=== PATIENT | female | born 1960 | race Caucasian/White ===

== ENCOUNTER → 2018-11-09 | Day surgery (SDC) | payer OTHER ==
[~2018-11-09] MED LIST: ACET1TAB33 PO; ACYC200C PO; AMLO10TA8 PO; AMLO5TAB10 PO; ASPI325T11 PO; CARV3.1210 PO; GABA-585 PO; HYDROmorphone 2 MG/ML VIAL IV PRN; IV RINGERS,LACTATED 1000ML 1,000 ML IV SCH; LIALDA1.2 GM PO; LIDOCAINE 1% PF 2 ML VIAL. ID PRN; LIDOCAINE 1% PF 2 ML VIAL. ONE; MORPHINE SULFATE 2 MG/ML VIAL. IV PRN; NAPR220C4 PO; OLME40TA12 PO; ONDANSETRON PF 4 MG/2 ML VIAL. IV PRN; PRED-220 PO; PROCHLORPERAZINE 10 MG/2 ML VIAL. IV PRN; PROPOFOL 20 ML IV ONE; RABE20TA18 PO; SPIR25TA PO; THIA100T22 PO; fentaNYL PF VIAL 100 MCG/2 ML VIAL IV PRN
[2018-11-09 08:00] VITALS: BP 176/89
== END | disposition home or self-care (01) ==
LOC: SURG 06:13
PROVIDERS: ATTEND Internal Medicine Gastroenterology
DX: K22.2 Esophageal obstruction (principal); K21.9 Gastro-esophageal reflux disease without esophagitis; I10 Essential (primary) hypertension; D50.9 Iron deficiency anemia, unspecified; Z80.41 Family history of malignant neoplasm of ovary; Z79.899 Other long term (current) drug therapy; Z90.49 Acquired absence of other specified parts of digestive tract; Z90.710 Acquired absence of both cervix and uterus
CPT/HCPCS: 43235; 43450; J2704

== ENCOUNTER → 2018-11-15 | Outpatient (CLI) | payer OTHER ==
[2018-11-09 08:00] VITALS: BP 176/89
[~2018-11-15] MED LIST changes: +BARIUM SULFATE 340 GM SUSPENSION. PO ONE; +BARIUM SULFATE 60% 355 ML SUSP PO ONE; -HYDROmorphone 2 MG/ML VIAL IV PRN; -IV RINGERS,LACTATED 1000ML 1,000 ML IV SCH; -LIDOCAINE 1% PF 2 ML VIAL. ID PRN; -LIDOCAINE 1% PF 2 ML VIAL. ONE; -MORPHINE SULFATE 2 MG/ML VIAL. IV PRN; -ONDANSETRON PF 4 MG/2 ML VIAL. IV PRN; -PROCHLORPERAZINE 10 MG/2 ML VIAL. IV PRN; -PROPOFOL 20 ML IV ONE; +SIMETHICONE/SOD BICARB/CITRIC ACID PACKET. PO ONE; -fentaNYL PF VIAL 100 MCG/2 ML VIAL IV PRN
--- NOTE | 2018-11-15 14:20 | RAD ---
Esophagram, 11/15/2018: History: Esophageal stricture, recent dilatation. Food sticking The study was performed thin and thickened liquid barium. 3.9 minutes of fluoroscopy time is utilized. 10 static and dynamic fluoroscopic sequences were recorded. The swallowing mechanism is intact. There is a mildly prominent cricopharyngeal impression in the cervical esophagus. There is no associated obstruction to flow of the contrast through the cervical region. The esophageal peristalsis is decreased with scattered tertiary contractions. These results in moderate stasis of barium in the thoracic esophagus in the recumbent position. There is a small hiatal hernia. There is mild smooth narrowing of the distal esophagus just superior to the level of the hiatal hernia. The esophagus opens up to a diameter of 12-13 mm at this level. No gastroesophageal reflux was demonstrated. IMPRESSION: 1. Mild smooth narrowing of the distal esophagus just superior to the level of a small hiatal hernia. 2. Esophageal tertiary contractions with stasis of some of the ingested materials in the thoracic esophagus in the recumbent position. 3. Mildly prominent cricopharyngeal and breast in the cervical esophagus.
== END | disposition home or self-care (01) ==
LOC: RAD 14:37
PROVIDERS: ATTEND Internal Medicine Gastroenterology
DX: R13.19 Other dysphagia (principal); K44.9 Diaphragmatic hernia without obstruction or gangrene
CPT/HCPCS: 74220

== ENCOUNTER → 2018-11-23 | Outpatient (CLI) | payer OTHER ==
[2018-11-09 08:00] VITALS: BP 176/89
[~2018-11-23] MED LIST changes: -ACET1TAB33 PO; -ACYC200C PO; -AMLO10TA8 PO; -AMLO5TAB10 PO; +AMLO5TAB7 PO; -ASPI325T11 PO; -BARIUM SULFATE 340 GM SUSPENSION. PO ONE; -BARIUM SULFATE 60% 355 ML SUSP PO ONE; -CARV3.1210 PO; -GABA-585 PO; -PRED-220 PO; -RABE20TA18 PO; -SIMETHICONE/SOD BICARB/CITRIC ACID PACKET. PO ONE; -SPIR25TA PO; -THIA100T22 PO
--- NOTE | 2018-11-23 12:10 | RAD ---
Radionuclide gastric emptying study, 11/23/2018: HISTORY: Hiatal hernia, epigastric fullness after eating The study was performed utilizing a solid test meal radiolabeled with 2.0 mCi of technetium 99m sulfur colloid. The following gastric retention values were obtained: 1 hour-26 percent 2 hours-6 percent 3 hours-1 percent. A gastric T1/2 of 35 minutes was also calculated. IMPRESSION: Normal gastric emptying time. Electronically signed by: Cruz Graham MD (11/23/2018 12:05 PM) [facility]
== END | disposition home or self-care (01) ==
LOC: NM 08:14
PROVIDERS: ATTEND Internal Medicine Gastroenterology
DX: R13.10 Dysphagia, unspecified (principal); R10.84 Generalized abdominal pain
CPT/HCPCS: 78264; A9541

== ENCOUNTER 2019-01-12 10:37 | Inpatient (IN) | payer OTHER ==
[~2019-01-12] VITALS: Ht 160 cm; Wt 119.9 kg
[~2019-01-12 10:37] MED LIST changes: +AMLO5TAB10 PO; -AMLO5TAB7 PO
--- NOTE | 2019-01-12 11:29 | PHYS DOC ---
Adult General Chief Complaint Chief Complaint: CHEST PAIN HPI HPI Patient is a 58-year-old female who presents to the emergency department for evaluation. She states that this morning, when brushing her teeth around 7:30 in the morning, she noticed that water was dribbling out of the left side of her mouth and she has felt some numbness on the left side of her face. She didn' t notice any other muscle weakness but did report some paresthesias in her left arm as well. She denies any headache, vision changes, speech difficulty, headache, or other focal weakness. She has also been having some chest discomfort, nonradiating, described as an achiness, on and off this morning. There are no alleviating or exacerbating factors to her symptoms otherwise. Review of Systems Review of Systems Constitutional: Denies fever or chills [] Eyes: Denies change in visual acuity, redness, or eye pain [] HENT: Denies nasal congestion or sore throat [] Respiratory: Denies cough or shortness of breath [] Cardiovascular: No additional information not addressed in HPI [] GI: Denies abdominal pain, nausea, vomiting, bloody stools or diarrhea [] : Denies dysuria or hematuria [] Musculoskeletal: Denies back pain or joint pain [] Integument: Denies rash or skin lesions [] Neurologic: Denies headache, or other neurological deficits other than as discussed in the history of present illness.[] Endocrine: Denies polyuria or polydipsia [] All other systems were reviewed and found to be within normal limits, except as documented in this note. Current Medications Current Medications Current Medications Medications (Trade) Dose Ordered Sig/Attila Start Time Stop Time Status Last Admin Dose Admin Aspirin (Children'S Aspirin) 324 mg 1X ONCE 01/12/19 11:30 01/12/19 11:31 DC 01/12/19 11:59 324 MG Info (CONTRAST GIVEN -- Rx MONITORING) 1 each PRN DAILY PRN 01/12/19 12:00 01/14/19 11:59 Iohexol (Omnipaque 300 Mg/ml) 75 ml 1X ONCE 01/12/19 11:45 01/12/19 11:46 DC Iohexol (Omnipaque 350 Mg/ml) 75 ml 1X ONCE 01/12/19 11:45 01/12/19 11:49 DC 01/12/19 11:51 75 ML Allergies Allergies Allergies Coded Allergies Type Severity Reaction Last Updated Verified No Known Drug Allergies 11/07/18 No Physical Exam Physical Exam PHYSICAL EXAM: CONSTITUTIONAL: Well developed, well nourished HEAD: normocephalic, atraumatic EENT: PERRL, EOMI. Conjunctivae normal color, sclerae non-icteric; moist mucous membranes. NECK: Supple, non-tender; no meningismus. LUNGS: Lungs CTA, breathing even and unlabored. Normal air movement. HEART: Regular rate and rhythm, no murmur CHEST: No deformity; non-tender ABDOMEN: The abdomen is soft, and non-tender, no masses or bruits. EXTREM: Normal ROM; no deformity, no calf tenderness. Normal pulses palpable in all extremities. There is no pedal edema. SKIN: No rash; no diaphoresis NEURO: Alert; normal speech and cognition; CN's grossly intact; strength grossly intact without focal deficit.There is mild pinprick deficit/asymmetry on the left face and left arm compared to the right, without complete anesthesia , no other sensory deficit is noted. Cerebellar function is normal. NIH stroke scale is 1. BACK: No CVA TTP. Current Patient Data Vital Signs Vital Signs Date Time Temp Pulse Resp B/P (MAP) Pulse Ox O2 Delivery O2 Flow Rate FiO2 01/12/19 12:54 56 18 147/73 (97) 96 Room Air 01/12/19 11:53 98.3 98.3 Lab Values Laboratory Tests Test 01/12/19 11:00 White Blood Count 9.1 x10^3/uL (4.0-11.0) Red Blood Count 5.20 x10^6/uL (3.50-5.40) Hemoglobin 14.0 g/dL (12.0-15.5) Hematocrit 43.6 % (36.0-47.0) Mean Corpuscular Volume 84 fL (79-100) Mean Corpuscular Hemoglobin 27 pg (25-35) Mean Corpuscular Hemoglobin Concent 32 g/dL (31-37) Red Cell Distribution Width 15.3 % (11.5-14.5) H Platelet Count 239 x10^3/uL (140-400) Neutrophils (%) (Auto) 57 % (31-73) Lymphocytes (%) (Auto) 32 % (24-48) Monocytes (%) (Auto) 8 % (0-9) Eosinophils (%) (Auto) 2 % (0-3) Basophils (%) (Auto) 1 % (0-3) Neutrophils # (Auto) 5.2 x10^3uL (1.8-7.7) Lymphocytes # (Auto) 2.9 x10^3/uL (1.0-4.8) Monocytes # (Auto) 0.8 x10^3/uL (0.0-1.1) Eosinophils # (Auto) 0.2 x10^3/uL (0.0-0.7) Basophils # (Auto) 0.1 x10^3/uL (0.0-0.2) Prothrombin Time 12.6 SEC (11.7-14.0) Prothrombin Time INR 1.0 (0.8-1.1) Sodium Level 145 mmol/L (136-145) Potassium Level 4.6 mmol/L (3.5-5.1) Chloride Level 105 mmol/L (98-107) Carbon Dioxide Level 26 mmol/L (21-32) Anion Gap 14 (6-14) Blood Urea Nitrogen 19 mg/dL (7-20) Creatinine 0.7 mg/dL (0.6-1.0) Estimated GFR (Cockcroft-Gault) 85.6 BUN/Creatinine Ratio 27 (6-20) H Glucose Level 117 mg/dL (70-99) H Calcium Level 9.0 mg/dL (8.5-10.1) Magnesium Level 2.1 mg/dL (1.8-2.4) Total Bilirubin 0.6 mg/dL (0.2-1.0) Aspartate Amino Transferase (AST) 17 U/L (15-37) Alanine Aminotransferase (ALT) 31 U/L (14-59) Alkaline Phosphatase 93 U/L (46-116) Troponin I Quantitative < 0.017 ng/mL (0.000-0.055) Total Protein 6.5 g/dL (6.4-8.2) Albumin 3.5 g/dL (3.4-5.0) Albumin/Globulin Ratio 1.2 (1.0-1.7) Laboratory Tests 01/12/19 11:00 Laboratory Tests 01/12/19 11:00 EKG EKG [Normal sinus rhythm at a rate of 67 beats for minute, left axis deviation, normal intervals. There are no acute ischemic ST/T changes.] Radiology/Procedures Radiology/Procedures [PROCEDURE: CT HEAD WO CONTRAST PQRS Compliance Statement: One or more of the following individualized dose reduction techniques were utilized for this examination: 1. Automated exposure control 2. Adjustment of the mA and/or kV according to patient size 3. Use of iterative reconstruction technique CT HEAD WITHOUT CONTRAST History: LEFT SIDED WEAKNESS, Comparison: None. Procedure: Axial images are obtained of the head from the skull base through the vertex without IV contrast. Findings: The ventricles and sulci are normal for the patient's age. No mass-effect, midline shift, hemorrhage, extra-axial fluid collection, or obvious acute infarction is identified. Basilar cisterns are patent. Bone windows demonstrate no acute calvarial abnormality. The visualized paranasal sinuses are clear. Mastoid air cells are well aerated. IMPRESSION: No acute intracranial abnormality. ] PROCEDURE: PORTABLE CHEST 1V PORTABLE CHEST 1V Clinical Indication: PT STATES HAVING NUMBNESS IN FACE AND SOME CHEST PAIN, STARTED THIS AM. Comparison: None. Findings: The cardiomediastinal silhouette is normal. Lungs are clear. There is no pneumothorax. No pleural effusion is appreciated. No acute bone abnormality. IMPRESSION: No acute cardiopulmonary process. Course & Med Decision Making Course & Med Decision Making Pertinent Labs and Imaging studies reviewed. (See chart for details) [12:40 PM:The patient's condition remains stable. I spoke with the hospitalist , who accepted the patient to the hospital for further evaluation and treatment. CT angiogram of the head and neck is pending.] Dragon Disclaimer Dragon Disclaimer This electronic medical record was generated, in whole or in part, using a voice recognition dictation system. Departure Departure Impression: Primary Impression: Chest pain Additional Impression: Paresthesia Disposition: ADMITTED INPATIENT Admitting Physician: Maricruz Crews Condition: STABLE Referrals: RADHA TORREZ MD (PCP) Problem Qualifiers LIVE BARRETO MD Jan 12, 2019 11:29
[2019-01-12 11:30] LABS: BASO # 0.1 x10^3/uL (0.0-0.2); BASO % 1 % (0-3); EOS # 0.2 x10^3/uL (0.0-0.7); EOS % 2 % (0-3); HEMATOCRIT 43.6 % (36.0-47.0); LYMPH # 2.9 x10^3/uL (1.0-4.8); LYMPH % 32 % (24-48); MEAN CORPUSCULAR HEMOGLOBIN 27 pg (25-35); MEAN CORPUSCULAR HGB CONC 32 g/dL (31-37); MEAN CORPUSCULAR VOLUME 84 fL (79-100); MONO # 0.8 x10^3/uL (0.0-1.1); MONO % 8 % (0-9); NEUT # 5.2 x10^3uL (1.8-7.7); NEUT % 57 % (31-73); PLATELET COUNT 239 x10^3/uL (140-400); RED CELL DISTRIBUTION WIDTH 15.3 % (11.5-14.5); WHITE BLOOD COUNT 9.1 x10^3/uL (4.0-11.0)
[2019-01-12] MEDS ORDERED: ASPIRIN CHEWABLE 81 MG TABLET. PO ONE (11:30)
[2019-01-12 11:39] LABS: PROTHROMBIN TIME PATIENT 12.6 SEC (11.7-14.0)
[2019-01-12 11:41] LABS: CREATININE 0.7 mg/dL (0.6-1.0); GFR 85.6; POTASSIUM 4.6 mmol/L (3.5-5.1)
[2019-01-12] MEDS ORDERED: IOHEXOL 300 MG/ML 100ML VIAL. IV ONE (11:45)
[2019-01-12] MEDS ORDERED: IOHEXOL 350 MG/ML 100 ML VIAL. IV ONE (11:45)
[2019-01-12 11:47] LABS: ALBUMIN 3.5 g/dL (3.4-5.0); ALBUMIN/GLOBULIN RATIO 1.2 (1.0-1.7); MAGNESIUM 2.1 mg/dL (1.8-2.4); TOTAL BILIRUBIN 0.6 mg/dL (0.2-1.0); TOTAL PROTEIN 6.5 g/dL (6.4-8.2)
--- NOTE | 2019-01-12 11:58 | RAD ---
PORTABLE CHEST 1V Clinical Indication: PT STATES HAVING NUMBNESS IN FACE AND SOME CHEST PAIN, STARTED THIS AM. Comparison: None. Findings: The cardiomediastinal silhouette is normal. Lungs are clear. There is no pneumothorax. No pleural effusion is appreciated. No acute bone abnormality. IMPRESSION: No acute cardiopulmonary process. Electronically signed by: Jesus Bashir MD (01/12/2019 11:55 AM) [id number]
[2019-01-12] MEDS ORDERED: CONTRAST GIVEN. MC PRN (12:00)
--- NOTE | 2019-01-12 12:33 | RAD ---
PQRS Compliance Statement: One or more of the following individualized dose reduction techniques were utilized for this examination: 1. Automated exposure control 2. Adjustment of the mA and/or kV according to patient size 3. Use of iterative reconstruction technique CT HEAD WITHOUT CONTRAST History: LEFT SIDED WEAKNESS, Comparison: None. Procedure: Axial images are obtained of the head from the skull base through the vertex without IV contrast. Findings: The ventricles and sulci are normal for the patient's age. No mass-effect, midline shift, hemorrhage, extra-axial fluid collection, or obvious acute infarction is identified. Basilar cisterns are patent. Bone windows demonstrate no acute calvarial abnormality. The visualized paranasal sinuses are clear. Mastoid air cells are well aerated. IMPRESSION: No acute intracranial abnormality. Electronically signed by: Jesus Bashir MD (01/12/2019 12:31 PM) [id number]
--- NOTE | 2019-01-12 12:37 | EKG ---
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
--- NOTE | 2019-01-12 12:44 | RAD ---
PQRS Compliance Statement: One or more of the following individualized dose reduction techniques were utilized for this examination: 1. Automated exposure control 2. Adjustment of the mA and/or kV according to patient size 3. Use of iterative reconstruction technique CT ANGIOGRAPHY HEAD AND NECK Clinical Indication: LEFT SIDED WEAKNESS, Comparison: CT head without contrast, same day. Technique: Helical CT imaging from inferior to the aortic arch to the skull vertex is performed after 75 cc of Omnipaque [address] angiogram protocol. 3-D MIP reconstructions of the cervical carotid arteries and little traverse of [place] are performed. PQRS Compliance Statement - Stenosis calculations for CT, MR and conventional angiography are based upon measurement of the distal ICA diameter in accordance with the NASCET methodology. Stenosis calculations for carotid ultrasound studies are derived from validated velocity criteria which are known to correlate with the NASCET methodology. Findings: Aortic arch branches are patent. The mid innominate artery is obscured due to beam hardening artifact from dense contrast in left brachiocephalic vein. Limited evaluation of the common carotid artery due to beam hardening artifact. No obvious narrowing. Right common carotid artery is patent. No significant narrowing of the cervical internal carotid arteries. Nondiagnostic evaluation of the proximal left vertebral artery due to beam hardening artifact. Given this limitation the vertebral arteries are patent. There is no evidence of dissection. Distal vertebral arteries are codominant. Basilar artery is patent. Posterior cerebral arteries are patent. Atherosclerotic calcification and no more than mild narrowing of the bilateral cavernous internal carotid arteries. Anterior cerebral arteries are patent. Middle cerebral arteries are patent. No evidence of intracranial aneurysm. No abnormal enhancement in the brain parenchyma. No cervical adenopathy. Parotid, submandibular, and thyroid glands are symmetric. Upper lungs are clear. Cervical spine alignment is maintained. IMPRESSION: 1. Normal CTA neck findings. Please see limitations above due to beam hardening artifact. 2. No intracranial artery occlusion or significant stenosis or evidence of aneurysm. Electronically signed by: Jesus Bashir MD (01/12/2019 12:42 PM) [id number]
[2019-01-12 12:52] LABS: CREATINE KINASE 70 U/L (26-192)
[2019-01-12] MEDS ORDERED: MESALAMINE 1.2 GM PO SCH (13:00)
--- NOTE | 2019-01-12 13:28 | PDOC1 ---
History and Physical Date of Admission Date of Admission DATE: 01/12/19 TIME: 13:21 Identification/Chief Complaint Chief Complaint left facial numbness/tingling and left sided CP today Source Source: Caregiver, Chart review, Patient History of Present Illness History of Present Illness 58 White F obese, HTN on meds and maintain compliance, PCP Dr Renetta Webster, 7:30 AM today left facial tingling, no other sxs aside form left sided CP, MSK in character after the TIA sxs. NO radiation, NO diaphoresis,SOA< or presyncopal sxs. Nuero exam non focal - NIHSS 2. VS and EKG and CT head, CTA head and neck and CXR ok, Admitted for possible need for mRI with neuro and cardiac work up,. VS ok, seen at ER dw , FUll code. OBS There was no drooling or dysphagia or unequal folds Past Medical History Cardiovascular: HTN Past Surgical History Past Surgical History: Cholecystectomy, , Tonsillectomy, Hysterectomy Family History Family History: Hypertension Social History Smoke: No ALCOHOL: none Drugs: None Current Problem List Problem List Problems Medical Problems: (1) Chest pain Status: Acute (2) Paresthesia Status: Acute Current Medications Current Medications Current Medications Aspirin (Children'S Aspirin) 324 mg 1X ONCE PO Last administered on 01/12/19at 11:59; Start 01/12/19 at 11:30; Stop 01/12/19 at 11:31; Status DC Iohexol (Omnipaque 300 Mg/ml) 75 ml 1X ONCE IV ; Start 01/12/19 at 11:45; Stop 01/12/19 at 11:46; Status DC Iohexol (Omnipaque 350 Mg/ml) 75 ml 1X ONCE IV Last administered on 01/12/19at 11:51; Start 01/12/19 at 11:45; Stop 01/12/19 at 11:49; Status DC Info (CONTRAST GIVEN -- Rx MONITORING) 1 each PRN DAILY PRN MC SEE COMMENTS; Start 01/12/19 at 12:00; Stop 01/14/19 at 11:59 Active Scripts Active Reported Aleve (Naproxen Sodium) 220 Mg Capsule 220 Mg PO BID Lialda (Mesalamine) 1.2 Gm Tablet. 1.2 Gm PO QID Benicar (Olmesartan Medoxomil) 40 Mg Tablet 40 Mg PO DAILY Amlodipine Besylate 5 Mg Tablet 5 Mg PO DAILY Allergies Allergies: Coded Allergies: No Known Drug Allergies (Unverified , 11/07/18) ROS Review of System as per HPI, rest of 14 pt neg Physical Exam General: Alert, Oriented X3, Cooperative, No acute distress HEENT: Atraumatic, PERRLA, EOMI Lungs: Clear to auscultation, Normal air movement Heart: S1S2, RRR, no thrills, no rubs, no gallops, no murmurs Cardiovascular: S1, S2 Breasts: Normal, Rt breast nml w/o mass, Lt breast nml w/o mass, Nipples normal Rectal Exam: not examined PELVIC: Nml ext genitalia Extremities: No clubbing, No cyanosis, No edema, Normal pulses, No tenderness/ swelling Skin: No rashes, No breakdown, No significant lesion Neuro: Normal gait, Normal speech, Normal tone, Sensation intact, Cranial nerves 3-12 NL, Reflexes 2+, Other (4/5 left side UE and LE) Psych/Mental Status: Mental status NL, Mood NL Vitals Vitals Vital Signs Date Time Temp Pulse Resp B/P (MAP) Pulse Ox O2 Delivery O2 Flow Rate FiO2 01/12/19 12:54 56 18 147/73 (97) 96 Room Air 01/12/19 11:53 98.3 98.3 Labs Labs Laboratory Tests Test 01/12/19 11:00 White Blood Count 9.1 x10^3/uL (4.0-11.0) Red Blood Count 5.20 x10^6/uL (3.50-5.40) Hemoglobin 14.0 g/dL (12.0-15.5) Hematocrit 43.6 % (36.0-47.0) Mean Corpuscular Volume 84 fL (79-100) Mean Corpuscular Hemoglobin 27 pg (25-35) Mean Corpuscular Hemoglobin Concent 32 g/dL (31-37) Red Cell Distribution Width 15.3 % (11.5-14.5) Platelet Count 239 x10^3/uL (140-400) Neutrophils (%) (Auto) 57 % (31-73) Lymphocytes (%) (Auto) 32 % (24-48) Monocytes (%) (Auto) 8 % (0-9) Eosinophils (%) (Auto) 2 % (0-3) Basophils (%) (Auto) 1 % (0-3) Neutrophils # (Auto) 5.2 x10^3uL (1.8-7.7) Lymphocytes # (Auto) 2.9 x10^3/uL (1.0-4.8) Monocytes # (Auto) 0.8 x10^3/uL (0.0-1.1) Eosinophils # (Auto) 0.2 x10^3/uL (0.0-0.7) Basophils # (Auto) 0.1 x10^3/uL (0.0-0.2) Prothrombin Time 12.6 SEC (11.7-14.0) Prothromb Time International Ratio 1.0 (0.8-1.1) Sodium Level 145 mmol/L (136-145) Potassium Level 4.6 mmol/L (3.5-5.1) Chloride Level 105 mmol/L (98-107) Carbon Dioxide Level 26 mmol/L (21-32) Anion Gap 14 (6-14) Blood Urea Nitrogen 19 mg/dL (7-20) Creatinine 0.7 mg/dL (0.6-1.0) Estimated GFR (Cockcroft-Gault) 85.6 BUN/Creatinine Ratio 27 (6-20) Glucose Level 117 mg/dL (70-99) Calcium Level 9.0 mg/dL (8.5-10.1) Magnesium Level 2.1 mg/dL (1.8-2.4) Total Bilirubin 0.6 mg/dL (0.2-1.0) Aspartate Amino Transf (AST/SGOT) 17 U/L (15-37) Alanine Aminotransferase (ALT/SGPT) 31 U/L (14-59) Alkaline Phosphatase 93 U/L (46-116) Creatine Kinase 70 U/L (26-192) Creatine Kinase MB (Mass) 0.7 ng/mL (0.0-3.6) Creatine Kinase MB Relative Index % (0-4) Troponin I Quantitative < 0.017 ng/mL (0.000-0.055) [id number]-Type Natriuretic Peptide 88 pg/mL (0-124) Total Protein 6.5 g/dL (6.4-8.2) Albumin 3.5 g/dL (3.4-5.0) Albumin/Globulin Ratio 1.2 (1.0-1.7) Laboratory Tests Test 01/12/19 11:00 White Blood Count 9.1 x10^3/uL (4.0-11.0) Red Blood Count 5.20 x10^6/uL (3.50-5.40) Hemoglobin 14.0 g/dL (12.0-15.5) Hematocrit 43.6 % (36.0-47.0) Mean Corpuscular Volume 84 fL (79-100) Mean Corpuscular Hemoglobin 27 pg (25-35) Mean Corpuscular Hemoglobin Concent 32 g/dL (31-37) Red Cell Distribution Width 15.3 % (11.5-14.5) Platelet Count 239 x10^3/uL (140-400) Neutrophils (%) (Auto) 57 % (31-73) Lymphocytes (%) (Auto) 32 % (24-48) Monocytes (%) (Auto) 8 % (0-9) Eosinophils (%) (Auto) 2 % (0-3) Basophils (%) (Auto) 1 % (0-3) Neutrophils # (Auto) 5.2 x10^3uL (1.8-7.7) Lymphocytes # (Auto) 2.9 x10^3/uL (1.0-4.8) Monocytes # (Auto) 0.8 x10^3/uL (0.0-1.1) Eosinophils # (Auto) 0.2 x10^3/uL (0.0-0.7) Basophils # (Auto) 0.1 x10^3/uL (0.0-0.2) Prothrombin Time 12.6 SEC (11.7-14.0) Prothromb Time International Ratio 1.0 (0.8-1.1) Sodium Level 145 mmol/L (136-145) Potassium Level 4.6 mmol/L (3.5-5.1) Chloride Level 105 mmol/L (98-107) Carbon Dioxide Level 26 mmol/L (21-32) Anion Gap 14 (6-14) Blood Urea Nitrogen 19 mg/dL (7-20) Creatinine 0.7 mg/dL (0.6-1.0) Estimated GFR (Cockcroft-Gault) 85.6 BUN/Creatinine Ratio 27 (6-20) Glucose Level 117 mg/dL (70-99) Calcium Level 9.0 mg/dL (8.5-10.1) Magnesium Level 2.1 mg/dL (1.8-2.4) Total Bilirubin 0.6 mg/dL (0.2-1.0) Aspartate Amino Transf (AST/SGOT) 17 U/L (15-37) Alanine Aminotransferase (ALT/SGPT) 31 U/L (14-59) Alkaline Phosphatase 93 U/L (46-116) Creatine Kinase 70 U/L (26-192) Creatine Kinase MB (Mass) 0.7 ng/mL (0.0-3.6) Creatine Kinase MB Relative Index % (0-4) Troponin I Quantitative < 0.017 ng/mL (0.000-0.055) FM-Ocs-P-Type Natriuretic Peptide 88 pg/mL (0-124) Total Protein 6.5 g/dL (6.4-8.2) Albumin 3.5 g/dL (3.4-5.0) Albumin/Globulin Ratio 1.2 (1.0-1.7) VTE Prophylaxis Ordered VTE Prophylaxis Devices: Yes VTE Pharmacological Prophylaxi: Yes Assessment/Plan Assessment/Plan left facial tingling - still happening, milder now, started 7:30 AM today, NIHSS 2 LEft sided CP, MSK in nature HTN, controlled - on meds Obesity PLAN: OBS MRI? ASA 325 NEuro consult CP cards consulted MEds reconciled I recommended ASA for primary prevention Seen at ZAHRAA HAWKINS MD Jan 12, 2019 13:27
[2019-01-12] MEDS ORDERED: ONDANSETRON ODT 4 MG TAB.RAPDIS. PO PRN (13:30)
[2019-01-12] MEDS ORDERED: ACETAMINOPHEN/CODEINE 300/30MG TABLET. PO PRN (13:30)
[2019-01-12] MEDS ORDERED: ONDANSETRON PF 4 MG/2 ML VIAL. IV PRN (13:30)
[2019-01-12] MEDS ORDERED: ACETAMINOPHEN 500 MG TABLET PO PRN (13:30)
--- NOTE | 2019-01-12 14:39 | RAD ---
EXAM: Brain MRI without contrast. HISTORY: Left-sided facial droop and weakness. TECHNIQUE: Multiplanar, multisequence magnetic resonance imaging of the brain was performed without contrast. COMPARISON: Head CT obtained on the same date. FINDINGS: There is no restricted diffusion to suggest acute or subacute infarction. There is no susceptibility effect to suggest hemorrhage. There is no mass effect or midline shift. There is no hydrocephalus. There are few scattered foci of T2/FLAIR hyperintensity within the cerebral white matter and lino, a nonspecific finding. The orbits are unremarkable. There is minimal paranasal sinus because of thickening. There is a tiny amount of fluid in the mastoid air cells. There are normal flow voids within the cerebral vessels. There is a chronic lacunar infarct within the left lino. There is a small rounded region of T2 hyperintensity within the cervical medullary junction which is only seen on a single image and likely artifactual. IMPRESSION: 1. No acute intracranial finding. 2. Chronic infarct within the left lino. 3. Scattered nonspecific foci of signal change within the cerebral white matter, most commonly due to chronic small vessel disease in patients of this age. Electronically signed by: Aminata Mena MD (01/12/2019 2:36 PM) [id number]
[2019-01-12 15:00] VITALS: BP 190/83
[2019-01-12] MEDS ORDERED: RABE20TA18 PO (15:18)
[2019-01-12] MEDS ORDERED: LOSARTAN POTASSIUM 50 MG TABLET. PO SCH (16:00)
--- NOTE | 2019-01-12 16:09 | PDOC2 ---
LIDIA ACOSTA CLIENT RELATIONSHIP MANAGER 01/12/19 1609: CARDIAC CONSULT DATE OF CONSULT Date of Consult DATE: 01/12/19 TIME: 15:43 REASON FOR CONSULT Reason for Consult: Chest pain REFERRING PHYSICIAN Referring Physician: Mars SOURCE Source: Chart review, Patient HISTORY OF PRESENT ILLNESS HISTORY OF PRESENT ILLNESS This is a pleasant 58 yo female admitted for complains of stroke symptoms and CP. Reports that he was brushing her teeth this morning and was swishing and noted that she was instead spitting out the water and the water dribbling down her chin. also noted her left eye teary and dripping to her face and with facial tingling and numbness. Also noted that while eating cereal she could not keep her mouth close. Currently she still has some tingling on the left side of her face. No visual or auditory symptoms. No unilateral weakness and no dysarthria. She does stutter sometimes but nothing consistent. Her CP which is focal described as pressure to left chest size of a coin per her description lasted about 4-5 minutes and never recurred. Associated with nausea but no SOA nor diaphoresis. She felt anxious at that time as well. Occasionally she has palpitations but no dizziness, passing out or known arrhythmias. No recent viral infection and no known hx of CAD, CVA, VTE. PAST MEDICAL HISTORY Cardiovascular: HTN, Hyperlipidemia PAST SURGICAL HISTORY Past Surgical History: Cholecystectomy, Tonsillectomy, Hysterectomy FAMILY HISTORY Family History: Heart Disease (father) SOCIAL HISTORY Smoke: No ALCOHOL: none Drugs: None Lives: with Family CURRENT MEDICATIONS CURRENT MEDICATIONS Current Medications Medications (Trade) Dose Ordered Sig/Attila Route PRN Reason Start Time Stop Time Status Last Admin Dose Admin Aspirin (Children'S Aspirin) 324 mg 1X ONCE PO 01/12/19 11:30 01/12/19 11:31 DC 01/12/19 11:59 Iohexol (Omnipaque 350 Mg/ml) 75 ml 1X ONCE IV 01/12/19 11:45 01/12/19 11:49 DC 01/12/19 11:51 ALLERGIES ALLERGIES: Coded Allergies: No Known Drug Allergies (Unverified , 11/07/18) ROS Review of System 14 point ROS evaluated with pertinent positives noted per HPI PHYSICAL EXAM General: Alert, Oriented X3, Cooperative, No acute distress HEENT: Atraumatic, Mucous membr. moist/pink Lungs: Normal air movement Heart: Regular rate (SR), Normal S1, Normal S2, No murmurs Abdomen: Soft, No tenderness Extremities: No cyanosis, No edema Skin: No breakdown, No significant lesion Neuro: Normal speech, Sensation intact Psych/Mental Status: Mental status NL, Mood NL MUSCULOSKELETAL: Osteoarthritic changes both hands VITALS VITALS Vital Signs Date Time Temp Pulse Resp B/P (MAP) Pulse Ox O2 Delivery O2 Flow Rate FiO2 01/12/19 12:54 56 18 147/73 (97) 96 Room Air 01/12/19 11:53 98.3 98.3 LABS Lab: Laboratory Tests Test 01/12/19 11:00 White Blood Count 9.1 x10^3/uL (4.0-11.0) Red Blood Count 5.20 x10^6/uL (3.50-5.40) Hemoglobin 14.0 g/dL (12.0-15.5) Hematocrit 43.6 % (36.0-47.0) Mean Corpuscular Volume 84 fL (79-100) Mean Corpuscular Hemoglobin 27 pg (25-35) Mean Corpuscular Hemoglobin Concent 32 g/dL (31-37) Red Cell Distribution Width 15.3 % (11.5-14.5) Platelet Count 239 x10^3/uL (140-400) Neutrophils (%) (Auto) 57 % (31-73) Lymphocytes (%) (Auto) 32 % (24-48) Monocytes (%) (Auto) 8 % (0-9) Eosinophils (%) (Auto) 2 % (0-3) Basophils (%) (Auto) 1 % (0-3) Neutrophils # (Auto) 5.2 x10^3uL (1.8-7.7) Lymphocytes # (Auto) 2.9 x10^3/uL (1.0-4.8) Monocytes # (Auto) 0.8 x10^3/uL (0.0-1.1) Eosinophils # (Auto) 0.2 x10^3/uL (0.0-0.7) Basophils # (Auto) 0.1 x10^3/uL (0.0-0.2) Prothrombin Time 12.6 SEC (11.7-14.0) Prothromb Time International Ratio 1.0 (0.8-1.1) Sodium Level 145 mmol/L (136-145) Potassium Level 4.6 mmol/L (3.5-5.1) Chloride Level 105 mmol/L (98-107) Carbon Dioxide Level 26 mmol/L (21-32) Anion Gap 14 (6-14) Blood Urea Nitrogen 19 mg/dL (7-20) Creatinine 0.7 mg/dL (0.6-1.0) Estimated GFR (Cockcroft-Gault) 85.6 BUN/Creatinine Ratio 27 (6-20) Glucose Level 117 mg/dL (70-99) Calcium Level 9.0 mg/dL (8.5-10.1) Magnesium Level 2.1 mg/dL (1.8-2.4) Total Bilirubin 0.6 mg/dL (0.2-1.0) Aspartate Amino Transf (AST/SGOT) 17 U/L (15-37) Alanine Aminotransferase (ALT/SGPT) 31 U/L (14-59) Alkaline Phosphatase 93 U/L (46-116) Creatine Kinase 70 U/L (26-192) Creatine Kinase MB (Mass) 0.7 ng/mL (0.0-3.6) Creatine Kinase MB Relative Index % (0-4) Troponin I Quantitative < 0.017 ng/mL (0.000-0.055) CC-Cpv-K-Type Natriuretic Peptide 88 pg/mL (0-124) Total Protein 6.5 g/dL (6.4-8.2) Albumin 3.5 g/dL (3.4-5.0) Albumin/Globulin Ratio 1.2 (1.0-1.7) Thyroid Stimulating Hormone (TSH) 2.504 uIU/mL (0.358-3.74) ASSESSMENT/PLAN ASSESSMENT/PLAN 1. Left facial paresthesia: TIA vs Fenton palsy. Neurology following 2. Palpitations with family hx of "hole in the heart(father 3. HTN: controlled 4. Atypical CP: likely MSK 5. HLP 6. Morbid obesity 7. Hx of shingles: last outbreak 4 yrs ago 8. Hx of statin induced myopathy 9. Hx of chronic diarrhea: IBS? Recommendations 1. TTE with bubble study. Trend troponin. Monitor rhythm overnight and will consider for outpt event monitor. 2. ASA, continue with BP regimen. 3. Check lipids and if elevated then will need to consider starting on zetia and PCSK9 inhibitor. 4. Wt reduction. CAROL outpt study advised. ANANYA SWANSON MD 01/12/19 2641: CARDIAC CONSULT ASSESSMENT/PLAN ASSESSMENT/PLAN Pt. seen and examined. 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 No clear cardiac symptoms. await echo. Continue BP mgmt. Will plan for outpt event monitor Consider outpt stress testing if recurrence of pain LIDIA ACOSTA APRN Jan 12, 2019 16:09 ANANYA SWANSON MD Jan 12, 2019 23:01
[2019-01-12 16:43] LABS: CHOLESTEROL/HDL RATIO 4.6
[2019-01-12] MEDS ORDERED: hydrALAZINE 20 MG/ML VIAL. IVP PRN (18:15)
[2019-01-12] MEDS: PANTOPRAZOLE 40 MG TABLET.DR. PO SCH (18:15)
[2019-01-12] MEDS: NAPROXEN 250 MG TABLET PO SCH (18:16)
--- NOTE | 2019-01-12 18:29 | PDOC2 ---
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 Brain tumor? Left side face numbness and tingling. Left side hearing decrease and tinnitus. Headaches, chronic. Left UE paresthesia and weakness. HLD. HTN. Obesity. No evidence of acute CVA this time. RECOMMENDATIONS/PLAN: Brain MRI with contrast to help rule out ponting cerebellar triangle tumor. Antiviral treatment. Steroid 1 course. BP control. Monitoring HR, BP and glucose level. Treat medical diseases. Lab: see orders. Weight reduction. HISTORY OF THE PRESENT ILLNESS: This is a 58-y-old female patient who was admitted due to complains of stroke symptoms and chest pain. Reports that she was brushing her teeth this morning and was swishing and noted that she was instead spitting out the water and the water dribbling down her chin. She also noted her left eye teary and dripping to her face and with facial tingling and numbness. Also noted that while eating cereal she could not keep her mouth close. Her symptoms of left side of face numbness and tingling persistent, she also stated that she has left ear hearing decrease. She feels paresthesia and weakness in her left arm as well. PAST MEDICAL HISTORY Cardiovascular: HTN, Hyperlipidemia PAST SURGICAL HISTORY Cholecystectomy, Tonsillectomy, Hysterectomy FAMILY HISTORY Heart Disease (father) ALLERGY: Unknown MEDICATIONS: Refer to [facility] SOCIAL HISTORY: Lives at home. Denies smoking, drinking, and illicit drug use. REVIEW OF SYSTEMS: Constitutional: Obese. Head: No traumatic brain or head injury. Skin: No edema, or rash. Ear: No infection. Eyes: No vision loss or color blindness. Nose: No bleeding or purulent discharges. Hearing: No hearing decrease. Neck: No injury. Breast: No history of cancer, masses,or discharges. Cardiac: HTN, HLD. Pulmonary: No COPD. GI: No GI ulcer, GI bleeding. Urinary/genital: UTI. Endocrinologic: Obesity. Skeletomuscular: No muscular atrophy. Neurological: see HP. Psychiatric: Denies drug use/abuse. Otherwise, not [id number] review of systems. PHYSICAL EXAMINATION: General appearance is in subacute distress. HEENT: Normocephalic and nontraumatic. Eyes, nose, ears, and throat are unremarkable. Neck is supple. No lymphadenopathy. No crepitus. Cardiovascular: S1, S2, regular rate and rhythm. Pulmonary: Clear to auscultation bilaterally. Abdomen: Bowel sounds are positive. Abdomen is soft, nontender, and nondistended. Extremities: No rash, lesions, or edema. No restriction of range of motion NEUROLOGICAL EXAMINATION: Alert Oriented to time, place and person. PERRL. EOMI. CN: no focal findings. Muscle tone: within normal. Muscle strength: 5 DTR: 2- Plantar reflex: Flexor response bilaterally Gait: not examined in bed. Sensory exam: no abnormal findings. No acute cerebellar signs elicited. F-T-N test fine. Current Medications Current Medications Current Medications Aspirin (Children'S Aspirin) 324 mg 1X ONCE PO Last administered on 01/12/19at 11:59; Start 01/12/19 at 11:30; Stop 01/12/19 at 11:31; Status DC Iohexol (Omnipaque 300 Mg/ml) 75 ml 1X ONCE IV ; Start 01/12/19 at 11:45; Stop 01/12/19 at 11:46; Status DC Iohexol (Omnipaque 350 Mg/ml) 75 ml 1X ONCE IV Last administered on 01/12/19at 11:51; Start 01/12/19 at 11:45; Stop 01/12/19 at 11:49; Status DC Info (CONTRAST GIVEN -- Rx MONITORING) 1 each PRN DAILY PRN MC SEE COMMENTS; Start 01/12/19 at 12:00; Stop 01/14/19 at 11:59 Aspirin (Ecotrin) 325 mg DAILYWBKFT PO ; Start 01/13/19 at 08:00 Amlodipine Besylate (Norvasc) 5 mg DAILY PO ; Start 01/13/19 at 09:00 Non-Formulary Medication (Mesalamine (Lialda)) 1.2 gm QID PO ; Start 01/12/19 at 13:00; Status UNV Naproxen (Naprosyn) 250 mg BIDWMEALS PO ; Start 01/12/19 at 17:00 Losartan Potassium (Cozaar) 100 mg DAILY PO ; Start 01/13/19 at 09:00 Acetaminophen (Tylenol) 500 mg PRN Q6HRS PRN PO MILD PAIN / TEMP; Start at 13:30 Acetaminophen/ Codeine Phosphate (Tylenol #3) 1 tab PRN Q6HRS PRN PO PAIN; Start 01/12/19 at 13:30 Ondansetron HCl (Zofran) 4 mg PRN Q6HRS PRN IV NAUSEA/VOMITING; Start 01/12/19 at 13:30 Ondansetron HCl (Zofran Odt) 4 mg PRN Q6HRS PRN PO NAUSEA/VOMITING; Start 01/12 at 13:30 Pantoprazole Sodium (Protonix) 40 mg DAILYAC PO ; Start 01/12/19 at 16:30 Losartan Potassium (Cozaar) 100 mg DAILY PO ; Start 01/12/19 at 16:00; Status Cancel Hydralazine HCl (Apresoline Inj) 10 mg PRN Q6HRS PRN IVP ELEVATED BP, SEE COMMENTS; Start 01/12/19 at 18:15 Active Scripts Active Reported Aleve (Naproxen Sodium) 220 Mg Capsule 220 Mg PO BID Benicar (Olmesartan Medoxomil) 40 Mg Tablet 40 Mg PO DAILY Amlodipine Besylate 5 Mg Tablet 5 Mg PO DAILY Allergies Allergies: Allergies Coded Allergies Type Severity Reaction Last Updated Verified No Known Drug Allergies 11/07/18 No ROS Review of System The patient denies any associated fevers, chills, headache, ear pain, rhinorrhea , sore throat, stiff neck, productive cough, chest pain, shortness of breath, back or flank pain, abdominal pain, nausea, vomiting, diarrhea, constipation, dysuria, rash, numbness, weakness, tingling, incontinence, difficulty ambulating, or diaphoresis. Physical Exam Physical Exam General: Well developed, well nourished, no acute distress, well appearing HEENT: Pupils equally round and reactive to light, EOMI, no discharge, normal conjunctiva Neck: Supple, no nuchal rigidity, no JVD, trachea midline, no tenderness Cardiac: RRR, no murmurs, no gallops, no rubs Chest/Lungs: CTAB, no wheeze, no rhonchi, no crackles Abdomen: soft, non-distended, no guarding, no peritoneal signs, non-tender Back: No tenderness Extremities: no edema, pulses intact, non-tender,capillary refill <3 sec bilateral upper and lower extremities, Neuro: Alert and oriented x 4, no focal deficits, normal speech Vitals Vitals: Vital Signs Date Time Temp Pulse Resp B/P (MAP) Pulse Ox O2 Delivery O2 Flow Rate FiO2 01/12/19 15:00 98.2 72 18 190/83 (118) 93 98.2 01/12/19 14:40 Room Air Labs Labs Laboratory Tests Test 01/12/19 11:00 01/12/19 16:00 White Blood Count 9.1 x10^3/uL (4.0-11.0) Red Blood Count 5.20 x10^6/uL (3.50-5.40) Hemoglobin 14.0 g/dL (12.0-15.5) Hematocrit 43.6 % (36.0-47.0) Mean Corpuscular Volume 84 fL (79-100) Mean Corpuscular Hemoglobin 27 pg (25-35) Mean Corpuscular Hemoglobin Concent 32 g/dL (31-37) Red Cell Distribution Width 15.3 % (11.5-14.5) Platelet Count 239 x10^3/uL (140-400) Neutrophils (%) (Auto) 57 % (31-73) Lymphocytes (%) (Auto) 32 % (24-48) Monocytes (%) (Auto) 8 % (0-9) Eosinophils (%) (Auto) 2 % (0-3) Basophils (%) (Auto) 1 % (0-3) Neutrophils # (Auto) 5.2 x10^3uL (1.8-7.7) Lymphocytes # (Auto) 2.9 x10^3/uL (1.0-4.8) Monocytes # (Auto) 0.8 x10^3/uL (0.0-1.1) Eosinophils # (Auto) 0.2 x10^3/uL (0.0-0.7) Basophils # (Auto) 0.1 x10^3/uL (0.0-0.2) Prothrombin Time 12.6 SEC (11.7-14.0) Prothromb Time International Ratio 1.0 (0.8-1.1) Sodium Level 145 mmol/L (136-145) Potassium Level 4.6 mmol/L (3.5-5.1) Chloride Level 105 mmol/L (98-107) Carbon Dioxide Level 26 mmol/L (21-32) Anion Gap 14 (6-14) Blood Urea Nitrogen 19 mg/dL (7-20) Creatinine 0.7 mg/dL (0.6-1.0) Estimated GFR (Cockcroft-Gault) 85.6 BUN/Creatinine Ratio 27 (6-20) Glucose Level 117 mg/dL (70-99) Calcium Level 9.0 mg/dL (8.5-10.1) Magnesium Level 2.1 mg/dL (1.8-2.4) Total Bilirubin 0.6 mg/dL (0.2-1.0) Aspartate Amino Transf (AST/SGOT) 17 U/L (15-37) Alanine Aminotransferase (ALT/SGPT) 31 U/L (14-59) Alkaline Phosphatase 93 U/L (46-116) Creatine Kinase 70 U/L (26-192) Creatine Kinase MB (Mass) 0.7 ng/mL (0.0-3.6) Creatine Kinase MB Relative Index % (0-4) Troponin I Quantitative < 0.017 ng/mL (0.000-0.055) < 0.017 ng/mL (0.000-0.055) AU-Pxa-T-Type Natriuretic Peptide 88 pg/mL (0-124) Total Protein 6.5 g/dL (6.4-8.2) Albumin 3.5 g/dL (3.4-5.0) Albumin/Globulin Ratio 1.2 (1.0-1.7) Triglycerides Level 107 mg/dL (0-150) Cholesterol Level 220 mg/dL (0-200) LDL Cholesterol, Calculated 151 mg/dL (0-100) VLDL Cholesterol, Calculated 21 mg/dL (0-40) Non-HDL Cholesterol Calculated 172 mg/dL (0-129) HDL Cholesterol 48 mg/dL (40-60) Cholesterol/HDL Ratio 4.6 Thyroid Stimulating Hormone (TSH) 2.504 uIU/mL (0.358-3.74) Laboratory Tests Test 01/12/19 11:00 01/12/19 16:00 White Blood Count 9.1 x10^3/uL (4.0-11.0) Red Blood Count 5.20 x10^6/uL (3.50-5.40) Hemoglobin 14.0 g/dL (12.0-15.5) Hematocrit 43.6 % (36.0-47.0) Mean Corpuscular Volume 84 fL (79-100) Mean Corpuscular Hemoglobin 27 pg (25-35) Mean Corpuscular Hemoglobin Concent 32 g/dL (31-37) Red Cell Distribution Width 15.3 % (11.5-14.5) Platelet Count 239 x10^3/uL (140-400) Neutrophils (%) (Auto) 57 % (31-73) Lymphocytes (%) (Auto) 32 % (24-48) Monocytes (%) (Auto) 8 % (0-9) Eosinophils (%) (Auto) 2 % (0-3) Basophils (%) (Auto) 1 % (0-3) Neutrophils # (Auto) 5.2 x10^3uL (1.8-7.7) Lymphocytes # (Auto) 2.9 x10^3/uL (1.0-4.8) Monocytes # (Auto) 0.8 x10^3/uL (0.0-1.1) Eosinophils # (Auto) 0.2 x10^3/uL (0.0-0.7) Basophils # (Auto) 0.1 x10^3/uL (0.0-0.2) Prothrombin Time 12.6 SEC (11.7-14.0) Prothromb Time International Ratio 1.0 (0.8-1.1) Sodium Level 145 mmol/L (136-145) Potassium Level 4.6 mmol/L (3.5-5.1) Chloride Level 105 mmol/L (98-107) Carbon Dioxide Level 26 mmol/L (21-32) Anion Gap 14 (6-14) Blood Urea Nitrogen 19 mg/dL (7-20) Creatinine 0.7 mg/dL (0.6-1.0) Estimated GFR (Cockcroft-Gault) 85.6 BUN/Creatinine Ratio 27 (6-20) Glucose Level 117 mg/dL (70-99) Calcium Level 9.0 mg/dL (8.5-10.1) Magnesium Level 2.1 mg/dL (1.8-2.4) Total Bilirubin 0.6 mg/dL (0.2-1.0) Aspartate Amino Transf (AST/SGOT) 17 U/L (15-37) Alanine Aminotransferase (ALT/SGPT) 31 U/L (14-59) Alkaline Phosphatase 93 U/L (46-116) Creatine Kinase 70 U/L (26-192) Creatine Kinase MB (Mass) 0.7 ng/mL (0.0-3.6) Creatine Kinase MB Relative Index % (0-4) Troponin I Quantitative < 0.017 ng/mL (0.000-0.055) < 0.017 ng/mL (0.000-0.055) CV-Hfw-H-Type Natriuretic Peptide 88 pg/mL (0-124) Total Protein 6.5 g/dL (6.4-8.2) Albumin 3.5 g/dL (3.4-5.0) Albumin/Globulin Ratio 1.2 (1.0-1.7) Triglycerides Level 107 mg/dL (0-150) Cholesterol Level 220 mg/dL (0-200) LDL Cholesterol, Calculated 151 mg/dL (0-100) VLDL Cholesterol, Calculated 21 mg/dL (0-40) Non-HDL Cholesterol Calculated 172 mg/dL (0-129) HDL Cholesterol 48 mg/dL (40-60) Cholesterol/HDL Ratio 4.6 Thyroid Stimulating Hormone (TSH) 2.504 uIU/mL (0.358-3.74) DERECK HOPE MD Jan 12, 2019 18:28
[2019-01-12 19:05] VITALS: BP 194/87
[2019-01-12] MEDS ORDERED: LOSARTAN POTASSIUM 50 MG TABLET. PO ONE (19:30)
[2019-01-12] MEDS: predniSONE 10 MG TABLET PO SCH (19:37)
[2019-01-12] MEDS: ACYCLOVIR 200 MG CAPSULE. PO SCH (20:55)
[2019-01-12 23:00] VITALS: BP 201/86
[2019-01-13] VITALS (8 sets, daily range): BP systolic 148–174; BP diastolic 70–92
[2019-01-13 05:31] LABS: AMPHETAMINE/METHAMPHETAMINE NEG (NEG); BARBITURATES NEG (NEG); BENZODIAZEPINES NEG (NEG); CANNABINOIDS NEG (NEG); COCAINE NEG (NEG); METHADONE NEG (NEG); OPIATES NEG (NEG); PHENCYCLIDINE NEG (NEG)
[2019-01-13] MEDS: PANTOPRAZOLE 40 MG TABLET.DR. PO SCH (06:11)
[2019-01-13] MEDS ORDERED: amLODIPine BESYLATE 5 MG TABLET PO SCH (09:00)
[2019-01-13] MEDS ORDERED: GADOBUTROL 10 MMOL/10 ML VIAL IV ONE (09:15)
--- NOTE | 2019-01-13 10:15 | RAD ---
EXAM: Brain MRI with contrast. HISTORY: Left-sided weakness. TECHNIQUE: Multiplanar, multisequence magnetic resonance imaging of the brain was performed following the administration of 10 cc Gadavist intravenous contrast. COMPARISON: Noncontrast brain MRI obtained one day prior. FINDINGS: No abnormal enhancing lesion is seen. There is no mass effect or midline shift. There is no hydrocephalus. There is a chronic lacunar infarct within the left lino. The orbits and paranasal sinuses are unremarkable. There is a small amount of fluid within the left mastoid air cells. IMPRESSION: 1. No abnormal enhancing lesion. 2. Chronic lacunar infarct within the left lino. 3. Please refer the report for the noncontrast MRI one day prior for additional noncontrast findings. Electronically signed by: Aminata Mena MD (01/13/2019 10:12 AM) [id number]
[2019-01-13] MEDS: ACYCLOVIR 200 MG CAPSULE. PO SCH ×4 (10:36→20:36)
[2019-01-13] MEDS: LOSARTAN POTASSIUM 50 MG TABLET. PO SCH (10:37)
[2019-01-13] MEDS: ASPIRIN ENTERIC COATED 325 MG TABLET.DR. PO SCH (10:37)
[2019-01-13] MEDS: THIAMINE 100 MG TABLET. PO SCH (10:37)
--- NOTE | 2019-01-13 10:37 | CARD ---
MR#: [id number] Date of Study: 01/13/2019 Ordering Physician: LIDIA ACOSTA, Referring Physician: ZAHRAA SALGADO Tech: Mami Dailey RDCS APPROVED REPORT EXAM: Two-dimensional and M-mode echocardiogram with Doppler, color Doppler with contrast. Other Information Quality : Technically LimitedHR: 72bpm Rhythm : NSRTechnically limited study due to body habitus. INDICATION CVA/TIA Chest Pain RISK FACTORS Hypertension Obesity 2D DIMENSIONS RVDd3.2 (2.9-3.5cm)Left Atrium(2D)3.6 (1.6-4.0cm) IVSd1.2 (0.7-1.1cm)Aortic Root(2D)2.6 (2.0-3.7cm) LVDd4.4 (3.9-5.9cm)LVOT Diameter1.9 (1.8-2.4cm) PWd1.1 (0.7-1.1cm)LVDs2.5 (2.5-4.0cm) FS (%) 42.9 %SV64.4 ml LVEF(%)74.3 (>50%) M-Mode DIMENSIONS Left Atrium(MM)3.57 (2.5-4.0cm)Aortic Root3.05 (2.2-3.7cm) Aortic Valve AoV Peak Fabrice.155.0cm/sAoV VTI30.8cm AO Peak GR.9.6mmHgLVOT Peak Fabrice.128.3cm/s AO Mean GR.5mmHgAVA (VMAX)2.36cm2 JENNIFER (VTI)2.40cm2 Mitral Valve MV E Ceqvtgds94.7cm/sMV DECEL [id number] MV A Rspjholi342.1cm/sE/A Ratio0.9 MV A [id number] Pulmonary Valve PV Peak Shnlgbiw559.9cm/s Tricuspid Valve TR P. Ippypjqq846xo/sRAP [id number] TR Peak Gr.[id number] LEFT VENTRICLE The left ventricle is normal size. There is mild concentric left ventricular hypertrophy. The left ve ntricular systolic function is normal and the ejection fraction is within normal range. The Ejection Fraction is 65-70%. There is normal LV segmental wall motion. Transmitral Doppler flow pattern is Gra de I-abnormal relaxation pattern. RIGHT VENTRICLE The right ventricle is normal size. There is normal right ventricular wall thickness. The right ventr icular systolic function is normal. ATRIA The left atrium size is normal. The right atrium size is normal. The interatrial septum is intact wit h no evidence for an atrial septal defect or patent foramen ovale as noted on 2-D or Doppler imaging. Technically difficult images. Saline contrast study was attempted but is of limited quality. AORTIC VALVE The aortic valve is normal in structure and function. The aortic valve is trileaflet. Doppler and Col or Flow revealed no significant aortic regurgitation. There is no significant aortic valvular stenosi s. MITRAL VALVE The mitral valve is normal in structure and function. There is no evidence of mitral valve prolapse. There is no mitral valve stenosis. Doppler and Color-flow revealed trace mitral regurgitation. TRICUSPID VALVE The tricuspid valve is normal in structure and function. Doppler and Color Flow revealed trace tricus pid regurgitation. The PA pressure was estimated at 32 mmHg. There is no tricuspid valve prolapse or vegetation. There is no tricuspid valve stenosis. PULMONIC VALVE Doppler and Color Flow revealed no pulmonic valvular regurgitation. There is no pulmonic valvular thom nosis. GREAT VESSELS The aortic root is normal in size. The ascending aorta is normal in size. The IVC is normal in size a nd collapses >50% with inspiration. PERICARDIAL EFFUSION There is no evidence of significant pericardial effusion. Critical Notification Critical Value: No <Conclusion> The left ventricular systolic function is normal and the ejection fraction is within normal range. Th e Ejection Fraction is 65-70%. There is normal LV segmental wall motion. The interatrial septum is intact with no evidence for an atrial septal defect or patent foramen ovale as noted on 2-D or Doppler imaging. Technically difficult images. Saline contrast study was attempt ed but is of limited quality. Doppler and Color Flow revealed trace tricuspid regurgitation. The PA pressure was estimated at 32 mm Hg. Signed by : Yaya Tejeda, Electronically Approved : 01/13/2019 10:37:11
[2019-01-13] MEDS: predniSONE 10 MG TABLET PO SCH (10:38)
[2019-01-13] MEDS: NAPROXEN 250 MG TABLET PO SCH ×2 (10:41→16:37)
--- NOTE | 2019-01-13 10:50 | PDOC ---
PROGRESS NOTES History of Present Illness History of Present Illness Assessment/Plan Assessment/Plan left facial tingling - sNIHSS 2 Chronic lacunar infarct within the left lino. LEft sided CP, MSK in nature HTN, poor control Obesity, EXTREME, MORBID PLAN: OBS MRI reviewed ASA 325 NEuro following CP cards consulted MEds reconciled, adjusted ASA TELE inc norvasc to 10mg po daily NEUROCHECKS Q 4 HRS Vitals Vitals Vital Signs Date Time Temp Pulse Resp B/P (MAP) Pulse Ox O2 Delivery O2 Flow Rate FiO2 01/13/19 10:37 71 169/71 01/13/19 10:33 97.6 20 96 Room Air 97.6 Physical Exam General: Alert, Oriented X3, Cooperative, No acute distress Heart: Regular rate (SR), Normal S1, Normal S2, No murmurs Lungs: Clear Abdomen: Normal bowel sounds, Soft, No tenderness Extremities: No cyanosis, No edema Skin: No breakdown, No significant lesion Labs LABS EXAM: Brain MRI with contrast. HISTORY: Left-sided weakness. TECHNIQUE: Multiplanar, multisequence magnetic resonance imaging of the brain was performed following the administration of 10 cc Gadavist intravenous contrast. COMPARISON: Noncontrast brain MRI obtained one day prior. FINDINGS: No abnormal enhancing lesion is seen. There is no mass effect or midline shift. There is no hydrocephalus. There is a chronic lacunar infarct within the left lino. The orbits and paranasal sinuses are unremarkable. There is a small amount of fluid within the left mastoid air cells. IMPRESSION: 1. No abnormal enhancing lesion. 2. Chronic lacunar infarct within the left lino. 3. Please refer the report for the noncontrast MRI one day prior for additional noncontrast findings. Electronically signed by: Aminata Mena MD (01/13/2019 10:12 AM) [id number] Laboratory Tests Test 01/12/19 11:00 01/12/19 16:00 01/12/19 19:40 01/13/19 02:00 White Blood Count 9.1 x10^3/uL (4.0-11.0) Red Blood Count 5.20 x10^6/uL (3.50-5.40) Hemoglobin 14.0 g/dL (12.0-15.5) Hematocrit 43.6 % (36.0-47.0) Mean Corpuscular Volume 84 fL (79-100) Mean Corpuscular Hemoglobin 27 pg (25-35) Mean Corpuscular Hemoglobin Concent 32 g/dL (31-37) Red Cell Distribution Width 15.3 % (11.5-14.5) Platelet Count 239 x10^3/uL (140-400) Neutrophils (%) (Auto) 57 % (31-73) Lymphocytes (%) (Auto) 32 % (24-48) Monocytes (%) (Auto) 8 % (0-9) Eosinophils (%) (Auto) 2 % (0-3) Basophils (%) (Auto) 1 % (0-3) Neutrophils # (Auto) 5.2 x10^3uL (1.8-7.7) Lymphocytes # (Auto) 2.9 x10^3/uL (1.0-4.8) Monocytes # (Auto) 0.8 x10^3/uL (0.0-1.1) Eosinophils # (Auto) 0.2 x10^3/uL (0.0-0.7) Basophils # (Auto) 0.1 x10^3/uL (0.0-0.2) Prothrombin Time 12.6 SEC (11.7-14.0) Prothromb Time International Ratio 1.0 (0.8-1.1) Sodium Level 145 mmol/L (136-145) Potassium Level 4.6 mmol/L (3.5-5.1) Chloride Level 105 mmol/L (98-107) Carbon Dioxide Level 26 mmol/L (21-32) Anion Gap 14 (6-14) Blood Urea Nitrogen 19 mg/dL (7-20) Creatinine 0.7 mg/dL (0.6-1.0) Estimated GFR (Cockcroft-Gault) 85.6 BUN/Creatinine Ratio 27 (6-20) Glucose Level 117 mg/dL (70-99) Calcium Level 9.0 mg/dL (8.5-10.1) Magnesium Level 2.1 mg/dL (1.8-2.4) Total Bilirubin 0.6 mg/dL (0.2-1.0) Aspartate Amino Transf (AST/SGOT) 17 U/L (15-37) Alanine Aminotransferase (ALT/SGPT) 31 U/L (14-59) Alkaline Phosphatase 93 U/L (46-116) Creatine Kinase 70 U/L (26-192) Creatine Kinase MB (Mass) 0.7 ng/mL (0.0-3.6) Creatine Kinase MB Relative Index % (0-4) Troponin I Quantitative < 0.017 ng/mL (0.000-0.055) < 0.017 ng/mL (0.000-0.055) < 0.017 ng/mL (0.000-0.055) LQ-Vjw-[id number]-Type Natriuretic Peptide 88 pg/mL (0-124) Total Protein 6.5 g/dL (6.4-8.2) Albumin 3.5 g/dL (3.4-5.0) Albumin/Globulin Ratio 1.2 (1.0-1.7) Triglycerides Level 107 mg/dL (0-150) Cholesterol Level 220 mg/dL (0-200) LDL Cholesterol, Calculated 151 mg/dL (0-100) VLDL Cholesterol, Calculated 21 mg/dL (0-40) Non-HDL Cholesterol Calculated 172 mg/dL (0-129) HDL Cholesterol 48 mg/dL (40-60) Cholesterol/HDL Ratio 4.6 Vitamin B12 Level 704 pg/mL (247-911) Thyroid Stimulating Hormone (TSH) 2.504 uIU/mL (0.358-3.74) Urine Opiates Screen Neg (NEG) Urine Methadone Screen Neg (NEG) Urine Barbiturates Neg (NEG) Urine Phencyclidine Screen Neg (NEG) Urine Amphetamine/Methamphetamine Neg (NEG) Urine Benzodiazepines Screen Neg (NEG) Urine Cocaine Screen Neg (NEG) Urine Cannabinoids Screen Neg (NEG) Urine Ethyl Alcohol Neg (NEG) Assessment and Plan Assessmemt and Plan Problems Medical Problems: (1) Chest pain Status: Acute (2) Paresthesia Status: Acute Comment Review of Relevant I have reviewed the following items savannah (where applicable) has been applied. Labs Laboratory Tests Test 01/12/19 11:00 01/12/19 16:00 01/12/19 19:40 01/13/19 02:00 White Blood Count 9.1 x10^3/uL (4.0-11.0) Red Blood Count 5.20 x10^6/uL (3.50-5.40) Hemoglobin 14.0 g/dL (12.0-15.5) Hematocrit 43.6 % (36.0-47.0) Mean Corpuscular Volume 84 fL (79-100) Mean Corpuscular Hemoglobin 27 pg (25-35) Mean Corpuscular Hemoglobin Concent 32 g/dL (31-37) Red Cell Distribution Width 15.3 % (11.5-14.5) Platelet Count 239 x10^3/uL (140-400) Neutrophils (%) (Auto) 57 % (31-73) Lymphocytes (%) (Auto) 32 % (24-48) Monocytes (%) (Auto) 8 % (0-9) Eosinophils (%) (Auto) 2 % (0-3) Basophils (%) (Auto) 1 % (0-3) Neutrophils # (Auto) 5.2 x10^3uL (1.8-7.7) Lymphocytes # (Auto) 2.9 x10^3/uL (1.0-4.8) Monocytes # (Auto) 0.8 x10^3/uL (0.0-1.1) Eosinophils # (Auto) 0.2 x10^3/uL (0.0-0.7) Basophils # (Auto) 0.1 x10^3/uL (0.0-0.2) Prothrombin Time 12.6 SEC (11.7-14.0) Prothromb Time International Ratio 1.0 (0.8-1.1) Sodium Level 145 mmol/L (136-145) Potassium Level 4.6 mmol/L (3.5-5.1) Chloride Level 105 mmol/L (98-107) Carbon Dioxide Level 26 mmol/L (21-32) Anion Gap 14 (6-14) Blood Urea Nitrogen 19 mg/dL (7-20) Creatinine 0.7 mg/dL (0.6-1.0) Estimated GFR (Cockcroft-Gault) 85.6 BUN/Creatinine Ratio 27 (6-20) Glucose Level 117 mg/dL (70-99) Calcium Level 9.0 mg/dL (8.5-10.1) Magnesium Level 2.1 mg/dL (1.8-2.4) Total Bilirubin 0.6 mg/dL (0.2-1.0) Aspartate Amino Transf (AST/SGOT) 17 U/L (15-37) Alanine Aminotransferase (ALT/SGPT) 31 U/L (14-59) Alkaline Phosphatase 93 U/L (46-116) Creatine Kinase 70 U/L (26-192) Creatine Kinase MB (Mass) 0.7 ng/mL (0.0-3.6) Creatine Kinase MB Relative Index % (0-4) Troponin I Quantitative < 0.017 ng/mL (0.000-0.055) < 0.017 ng/mL (0.000-0.055) < 0.017 ng/mL (0.000-0.055) IF-Bxj-P-Type Natriuretic Peptide 88 pg/mL (0-124) Total Protein 6.5 g/dL (6.4-8.2) Albumin 3.5 g/dL (3.4-5.0) Albumin/Globulin Ratio 1.2 (1.0-1.7) Triglycerides Level 107 mg/dL (0-150) Cholesterol Level 220 mg/dL (0-200) LDL Cholesterol, Calculated 151 mg/dL (0-100) VLDL Cholesterol, Calculated 21 mg/dL (0-40) Non-HDL Cholesterol Calculated 172 mg/dL (0-129) HDL Cholesterol 48 mg/dL (40-60) Cholesterol/HDL Ratio 4.6 Vitamin B12 Level 704 pg/mL (247-911) Thyroid Stimulating Hormone (TSH) 2.504 uIU/mL (0.358-3.74) Urine Opiates Screen Neg (NEG) Urine Methadone Screen Neg (NEG) Urine Barbiturates Neg (NEG) Urine Phencyclidine Screen Neg (NEG) Urine Amphetamine/Methamphetamine Neg (NEG) Urine Benzodiazepines Screen Neg (NEG) Urine Cocaine Screen Neg (NEG) Urine Cannabinoids Screen Neg (NEG) Urine Ethyl Alcohol Neg (NEG) Laboratory Tests Test 01/12/19 11:00 01/12/19 16:00 01/12/19 19:40 01/13/19 02:00 White Blood Count 9.1 x10^3/uL (4.0-11.0) Red Blood Count 5.20 x10^6/uL (3.50-5.40) Hemoglobin 14.0 g/dL (12.0-15.5) Hematocrit 43.6 % (36.0-47.0) Mean Corpuscular Volume 84 fL (79-100) Mean Corpuscular Hemoglobin 27 pg (25-35) Mean Corpuscular Hemoglobin Concent 32 g/dL (31-37) Red Cell Distribution Width 15.3 % (11.5-14.5) Platelet Count 239 x10^3/uL (140-400) Neutrophils (%) (Auto) 57 % (31-73) Lymphocytes (%) (Auto) 32 % (24-48) Monocytes (%) (Auto) 8 % (0-9) Eosinophils (%) (Auto) 2 % (0-3) Basophils (%) (Auto) 1 % (0-3) Neutrophils # (Auto) 5.2 x10^3uL (1.8-7.7) Lymphocytes # (Auto) 2.9 x10^3/uL (1.0-4.8) Monocytes # (Auto) 0.8 x10^3/uL (0.0-1.1) Eosinophils # (Auto) 0.2 x10^3/uL (0.0-0.7) Basophils # (Auto) 0.1 x10^3/uL (0.0-0.2) Prothrombin Time 12.6 SEC (11.7-14.0) Prothromb Time International Ratio 1.0 (0.8-1.1) Sodium Level 145 mmol/L (136-145) Potassium Level 4.6 mmol/L (3.5-5.1) Chloride Level 105 mmol/L (98-107) Carbon Dioxide Level 26 mmol/L (21-32) Anion Gap 14 (6-14) Blood Urea Nitrogen 19 mg/dL (7-20) Creatinine 0.7 mg/dL (0.6-1.0) Estimated GFR (Cockcroft-Gault) 85.6 BUN/Creatinine Ratio 27 (6-20) Glucose Level 117 mg/dL (70-99) Calcium Level 9.0 mg/dL (8.5-10.1) Magnesium Level 2.1 mg/dL (1.8-2.4) Total Bilirubin 0.6 mg/dL (0.2-1.0) Aspartate Amino Transf (AST/SGOT) 17 U/L (15-37) Alanine Aminotransferase (ALT/SGPT) 31 U/L (14-59) Alkaline Phosphatase 93 U/L (46-116) Creatine Kinase 70 U/L (26-192) Creatine Kinase MB (Mass) 0.7 ng/mL (0.0-3.6) Creatine Kinase MB Relative Index % (0-4) Troponin I Quantitative < 0.017 ng/mL (0.000-0.055) < 0.017 ng/mL (0.000-0.055) < 0.017 ng/mL (0.000-0.055) UL-Blt-R-Type Natriuretic Peptide 88 pg/mL (0-124) Total Protein 6.5 g/dL (6.4-8.2) Albumin 3.5 g/dL (3.4-5.0) Albumin/Globulin Ratio 1.2 (1.0-1.7) Triglycerides Level 107 mg/dL (0-150) Cholesterol Level 220 mg/dL (0-200) LDL Cholesterol, Calculated 151 mg/dL (0-100) VLDL Cholesterol, Calculated 21 mg/dL (0-40) Non-HDL Cholesterol Calculated 172 mg/dL (0-129) HDL Cholesterol 48 mg/dL (40-60) Cholesterol/HDL Ratio 4.6 Vitamin B12 Level 704 pg/mL (247-911) Thyroid Stimulating Hormone (TSH) 2.504 uIU/mL (0.358-3.74) Urine Opiates Screen Neg (NEG) Urine Methadone Screen Neg (NEG) Urine Barbiturates Neg (NEG) Urine Phencyclidine Screen Neg (NEG) Urine Amphetamine/Methamphetamine Neg (NEG) Urine Benzodiazepines Screen Neg (NEG) Urine Cocaine Screen Neg (NEG) Urine Cannabinoids Screen Neg (NEG) Urine Ethyl Alcohol Neg (NEG) Medications Current Medications Aspirin (Children'S Aspirin) 324 mg 1X ONCE PO Last administered on 01/12/19at 11:59; Start 01/12/19 at 11:30; Stop 01/12/19 at 11:31; Status DC Iohexol (Omnipaque 300 Mg/ml) 75 ml 1X ONCE IV ; Start 01/12/19 at 11:45; Stop 01/12/19 at 11:46; Status DC Iohexol (Omnipaque 350 Mg/ml) 75 ml 1X ONCE IV Last administered on 01/12/19at 11:51; Start 01/12/19 at 11:45; Stop 01/12/19 at 11:49; Status DC Info (CONTRAST GIVEN -- Rx MONITORING) 1 each PRN DAILY PRN MC SEE COMMENTS; Start 01/12/19 at 12:00; Stop 01/14/19 at 11:59 Aspirin (Ecotrin) 325 mg DAILYWBKFT PO Last administered on 01/13/19at 10:37; Start 01/13/19 at 08:00 Amlodipine Besylate (Norvasc) 5 mg DAILY PO Last administered on 01/13/19 10: 37; Start 01/13/19 at 09:00 Non-Formulary Medication (Mesalamine (Lialda)) 1.2 gm QID PO ; Start 01/12/19 at 13:00; Status UNV Naproxen (Naprosyn) 250 mg BIDWMEALS PO Last administered on 01/13/19at 10:41; Start 01/12/19 at 17:00 Losartan Potassium (Cozaar) 100 mg DAILY PO Last administered on 01/13/19 10: 37; Start 01/13/19 at 09:00 Acetaminophen (Tylenol) 500 mg PRN Q6HRS PRN PO MILD PAIN / TEMP; Start at 13:30 Acetaminophen/ Codeine Phosphate (Tylenol #3) 1 tab PRN Q6HRS PRN PO PAIN; Start 01/12/19 at 13:30 Ondansetron HCl (Zofran) 4 mg PRN Q6HRS PRN IV NAUSEA/VOMITING; Start 01/12/19 at 13:30 Ondansetron HCl (Zofran Odt) 4 mg PRN Q6HRS PRN PO NAUSEA/VOMITING; Start 01/12 at 13:30 Pantoprazole Sodium (Protonix) 40 mg DAILYAC PO Last administered on 01/13/19at 06:11; Start 01/12/19 at 16:30 Losartan Potassium (Cozaar) 100 mg DAILY PO ; Start 01/12/19 at 16:00; Status Cancel Hydralazine HCl (Apresoline Inj) 10 mg PRN Q6HRS PRN IVP ELEVATED BP, SEE COMMENTS Last administered on 01/12/19at 18:17; Start 01/12/19 at 18:15 Acyclovir (Zovirax) 400 mg [id number] PO Last administered on 01/13/19at 10:36; Start 01/12/19 at 21:00 Prednisone (Prednisone) 30 mg DAILY PO Last administered on 01/13/19at 10:38; Start 01/12/19 at 19:00 Thiamine Mononitrate (Vitamin B-1) 100 mg DAILY PO Last administered on at 10:37; Start 01/13/19 at 09:00 Losartan Potassium (Cozaar) 50 mg 1X ONCE PO Last administered on 01/12/19at 19 :35; Start 01/12/19 at 19:30; Stop 01/12/19 at 19:31; Status DC Gadobutrol (Gadavist) 10 mmol 1X ONCE IV Last administered on 01/13/19at 09:27 ; Start 01/13/19 at 09:15; Stop 01/13/19 at 09:16; Status DC Active Scripts Active Reported Aleve (Naproxen Sodium) 220 Mg Capsule 220 Mg PO BID Benicar (Olmesartan Medoxomil) 40 Mg Tablet 40 Mg PO DAILY Amlodipine Besylate 5 Mg Tablet 5 Mg PO DAILY Vitals/I & O Vital Sign - Last 24 Hours 01/12/19 01/12/19 01/12/19 01/12/19 11:00 11:30 11:53 12:00 Temp 98.3 98.3 Pulse 64 60 73 60 Resp 18 20 21 18 B/P (MAP) 170/65 (100) 145/63 (90) 169/79 (109) 143/75 (97) Pulse Ox 96 95 96 97 O2 Delivery Room Air Room Air Room Air Room Air 01/12/19 01/12/19 01/12/19 01/12/19 12:30 12:54 14:40 15:00 Temp 98.2 98.2 Pulse 62 56 72 Resp 18 18 18 B/P (MAP) 136/58 (84) 147/73 (97) 190/83 (118) Pulse Ox 96 96 93 O2 Delivery Room Air Room Air Room Air 01/12/19 01/12/19 01/12/19 01/12/19 18:17 19:05 19:30 19:35 Temp 97.4 97.4 Pulse 72 79 73 Resp 17 B/P (MAP) 190/83 194/87 (122) 194/87 Pulse Ox 96 O2 Delivery Room Air Room Air 01/12/19 01/13/19 01/13/19 01/13/19 23:00 03:00 07:00 08:00 Temp 97.4 97.9 97.5 97.4 97.9 97.5 Pulse 81 66 75 Resp 16 17 18 B/P (MAP) 201/86 (124) 148/72 (97) 165/81 (109) Pulse Ox 96 93 96 O2 Delivery Room Air Room Air Room Air Room Air 01/13/19 01/13/19 01/13/19 10:33 10:37 10:37 Temp 97.6 97.6 Pulse 71 71 71 Resp 20 B/P (MAP) 169/71 (103) 169/71 169/71 Pulse Ox 96 O2 Delivery Room Air Intake and Output 01/12/19 01/12/19 01/13/19 15:00 23:00 07:00 Intake Total 300 ml Balance 300 ml RADHA JENKINS MD Jan 13, 2019 10:50
--- NOTE | 2019-01-13 13:06 | PDOC ---
LIDIA ACOSTA DIRECTOR [facility] [facility] 01/13/19 1306: CARDIO Progress Notes Date and Time Date of Service 01/13/2019 Time of Evaluation 1240 Subjective Subjective: No Chest Pain, No shortness of breath, No Palpitations Vitals Vitals Vital Signs Date Time Temp Pulse Resp B/P (MAP) Pulse Ox O2 Delivery O2 Flow Rate FiO2 01/13/19 10:37 71 169/71 01/13/19 10:33 97.6 20 96 Room Air 97.6 Weight Weight [ ] Input and Output Intake and Output Intake and Output 01/13/19 06:59 Intake Total 300 ml Balance 300 ml Intake Oral 300 ml # Voids 1 # Bowel Movements 1 Laboratory Labs Laboratory Tests Test 01/12/19 16:00 01/12/19 19:40 01/13/19 02:00 Troponin I Quantitative < 0.017 ng/mL (0.000-0.055) < 0.017 ng/mL (0.000-0.055) Urine Opiates Screen Neg (NEG) Urine Methadone Screen Neg (NEG) Urine Barbiturates Neg (NEG) Urine Phencyclidine Screen Neg (NEG) Urine Amphetamine/Methamphetamine Neg (NEG) Urine Benzodiazepines Screen Neg (NEG) Urine Cocaine Screen Neg (NEG) Urine Cannabinoids Screen Neg (NEG) Urine Ethyl Alcohol Neg (NEG) Physical Exam HEENT: Neck Supple W Full Motion Chest: Symmetric LUNGS: Clear to Auscultation Heart: S1S2, RRR (SR) Abdomen: Soft N/T Extremities: No Calf Tenderness Neurology: alert, oriented, follow commands Assessment Assessment 1. Left facial paresthesia: [place] palsy per neurology. 2. Palpitations: EF and WM nml. No PFO/ASD. No significant ectopies. SR. 3. HTN: labile 4. Atypical CP: likely MSK 5. HLP 6. Morbid obesity 7. Hx of shingles: last outbreak 4 yrs ago 8. Hx of statin induced myopathy Recommendations 1. F/U in 4 weeks arrange for outpt event monitor 2. ASA, continue with BP regimen. Amlodipine started. 3. Consider zetia and PCSK9 inhibitor. 4. Wt reduction. CAROL outpt study advised. ANANYA SWANSON MD 01/13/19 1626: CARDIO Progress Notes Plan Plan Pt. seen and examined. Agree with above Track Grinder note. No clear cardiac issues. Normal exam, echo. No further palpitations. No additional w/u/ needed f/u prn. LIDIA ACOSTA APRN Jan 13, 2019 13:06 ANANYA SWANSON MD Jan 13, 2019 16:26
--- NOTE | 2019-01-13 14:59 | PDOC ---
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 Left side face numbness and tingling. Left side hearing decrease and tinnitus. Headaches, chronic. Left UE paresthesia and weakness. HLD. HTN. Obesity. No evidence of acute CVA this time. No evidence of brain tumor this time. RECOMMENDATIONS/PLAN: Antiviral treatment, Acyclovir 400 mg qid x 7-10 days. Steroid 1 course, Prednisone 30 mg daily, decreased 10 mg q 2 days then 5 mg daily for 2 days then stop. Neurontin 200 mg tid with titration up. BP control. Monitoring HR, BP and glucose level. Watch signs of GI bleeding. Treat medical diseases. Weight reduction. FU with PCP. FU with neurology in 1-2 weeks. HISTORY OF THE PRESENT ILLNESS: This is a 58-y-old female patient who was admitted due to complains of stroke symptoms and chest pain. Reports that she was brushing her teeth this morning and was swishing and noted that she was instead spitting out the water and the water dribbling down her chin. She also noted her left eye teary and dripping to her face and with facial tingling and numbness. Also noted that while eating cereal she could not keep her mouth close. Her symptoms of left side of face numbness and tingling persistent, she also stated that she has left ear hearing decrease. She feels paresthesia and weakness in her left arm as well. PAST MEDICAL HISTORY Cardiovascular: HTN, Hyperlipidemia PAST SURGICAL HISTORY Cholecystectomy, Tonsillectomy, Hysterectomy FAMILY HISTORY Heart Disease (father) ALLERGY: Unknown MEDICATIONS: Refer to [facility] SOCIAL HISTORY: Lives at home. Denies smoking, drinking, and illicit drug use. REVIEW OF SYSTEMS: Constitutional: Obese. Head: No traumatic brain or head injury. Skin: No edema, or rash. Ear: No infection. Eyes: No vision loss or color blindness. Nose: No bleeding or purulent discharges. Hearing: No hearing decrease. Neck: No injury. Breast: No history of cancer, masses,or discharges. Cardiac: HTN, HLD. Pulmonary: No COPD. GI: No GI ulcer, GI bleeding. Urinary/genital: UTI. Endocrinologic: Obesity. Skeletomuscular: No muscular atrophy. Neurological: see HP. Psychiatric: Denies drug use/abuse. Otherwise, not [id number] review of systems. PHYSICAL EXAMINATION: General appearance is in subacute distress. HEENT: Normocephalic and nontraumatic. Eyes, nose, ears, and throat are unremarkable. Neck is supple. No lymphadenopathy. No crepitus. Cardiovascular: S1, S2, regular rate and rhythm. Pulmonary: Clear to auscultation bilaterally. Abdomen: Bowel sounds are positive. Abdomen is soft, nontender, and nondistended. Extremities: No rash, lesions, or edema. No restriction of range of motion NEUROLOGICAL EXAMINATION: Alert Oriented to time, place and person. PERRL. EOMI. CN: no focal findings. Muscle tone: within normal. Muscle strength: 5 DTR: 2- Plantar reflex: Flexor response bilaterally Gait: not examined in bed. Sensory exam: no abnormal findings. No acute cerebellar signs elicited. F-T-N test fine. Objective Objective Vital Signs Date Time Temp Pulse Resp B/P (MAP) Pulse Ox O2 Delivery O2 Flow Rate FiO2 01/13/19 13:11 73 154/92 (112) 01/13/19 10:33 97.6 20 96 Room Air 97.6 Intake and Output 01/13/19 07:00 Intake Total 300 ml Balance 300 ml Intake Oral 300 ml # Voids 1 # Bowel Movements 1 Vitals Signs Vitals VS - Last 72 Hours, by Label Date Time Temp Pulse Resp B/P (MAP) Pulse Ox O2 Delivery O2 Flow Rate FiO2 01/13/19 13:11 73 154/92 (112) 01/13/19 10:37 71 169/71 01/13/19 10:37 71 169/71 01/13/19 10:33 97.6 71 20 169/71 (103) 96 Room Air 97.6 01/13/19 08:00 Room Air 01/13/19 07:00 97.5 75 18 165/81 (109) 96 Room Air 97.5 01/13/19 03:00 97.9 66 17 148/72 (97) 93 Room Air 97.9 01/12/19 23:00 97.4 81 16 201/86 (124) 96 Room Air 97.4 01/12/19 19:35 73 194/87 01/12/19 19:30 Room Air 01/12/19 19:05 97.4 79 17 194/87 (122) 96 Room Air 97.4 01/12/19 18:17 72 190/83 01/12/19 15:00 98.2 72 18 190/83 (118) 93 98.2 01/12/19 14:40 Room Air 01/12/19 12:54 56 18 147/73 (97) 96 Room Air 01/12/19 12:30 62 18 136/58 (84) 96 Room Air 01/12/19 12:00 60 18 143/75 (97) 97 Room Air 01/12/19 11:53 98.3 73 21 169/79 (109) 96 Room Air 98.3 01/12/19 11:30 60 20 145/63 (90) 95 Room Air 01/12/19 11:00 64 18 170/65 (100) 96 Room Air Laboratory Laboratory Laboratory Tests Test 01/12/19 16:00 01/12/19 19:40 01/13/19 02:00 Troponin I Quantitative < 0.017 ng/mL (0.000-0.055) < 0.017 ng/mL (0.000-0.055) Urine Opiates Screen Neg (NEG) Urine Methadone Screen Neg (NEG) Urine Barbiturates Neg (NEG) Urine Phencyclidine Screen Neg (NEG) Urine Amphetamine/Methamphetamine Neg (NEG) Urine Benzodiazepines Screen Neg (NEG) Urine Cocaine Screen Neg (NEG) Urine Cannabinoids Screen Neg (NEG) Urine Ethyl Alcohol Neg (NEG) Medication Medications Current Medications Acyclovir (Zovirax) 400 mg [id number] PO Last administered on 01/13/19at 13:55; Start 01/12/19 at 21:00 Amlodipine Besylate (Norvasc) 5 mg DAILY PO Last administered on 01/13/19at 10: 37; Start 01/13/19 at 09:00; Stop 01/13/19 at 12:59; Status DC Amlodipine Besylate (Norvasc) 10 mg DAILY PO ; Start 01/14/19 at 09:00 Aspirin (Ecotrin) 325 mg DAILYWBKFT PO Last administered on 01/13/19at 10:37; Start 01/13/19 at 08:00 Gadobutrol (Gadavist) 10 mmol 1X ONCE IV Last administered on 01/13/19at 09:27 ; Start 01/13/19 at 09:15; Stop 01/13/19 at 09:16; Status DC Hydralazine HCl (Apresoline Inj) 10 mg PRN Q6HRS PRN IVP ELEVATED BP, SEE COMMENTS Last administered on 01/12/19at 18:17; Start 01/12/19 at 18:15 Losartan Potassium (Cozaar) 50 mg 1X ONCE PO Last administered on 01/12/19at 19 :35; Start 01/12/19 at 19:30; Stop 01/12/19 at 19:31; Status DC Losartan Potassium (Cozaar) 100 mg DAILY PO ; Start 01/12/19 at 16:00; Status Cancel Losartan Potassium (Cozaar) 100 mg DAILY PO Last administered on 01/13/19at 10: 37; Start 01/13/19 at 09:00 Naproxen (Naprosyn) 250 mg BIDWMEALS PO Last administered on 01/13/19at 10:41; Start 01/12/19 at 17:00 Pantoprazole Sodium (Protonix) 40 mg DAILYAC PO Last administered on 01/13/19at 06:11; Start 01/12/19 at 16:30 Prednisone (Prednisone) 30 mg DAILY PO Last administered on 01/13/19at 10:38; Start 01/12/19 at 19:00 Thiamine Mononitrate (Vitamin B-1) 100 mg DAILY PO Last administered on at 10:37; Start 01/13/19 at 09:00 Comment Review of Relevant I have reviewed the following items savannah (where applicable) has been applied. DERECK HOPE MD Jan 13, 2019 14:59
[2019-01-13] MEDS: GABAPENTIN 100 MG CAPSULE. PO SCH ×2 (15:22→20:36)
--- NOTE | 2019-01-13 15:44 | NUR ---
SS following up with discharge planning. SS reviewed pt chart. Pt is from home with spouse and currently on room air. No discharge needs noted at this time. SS will continue to follow for pending discharge needs.
[2019-01-13] MEDS: SPIRONOLACTONE 25 MG TABLET PO SCH (16:35)
[2019-01-13] MEDS: METOPROLOL SUCC 24HR ER 50 MG TAB.ER.24H. PO SCH (18:29)
[2019-01-13] MEDS ORDERED: METOPROLOL SUCC 24HR ER 50 MG TAB.ER.24H. PO SCH (18:30)
[2019-01-14 03:59] VITALS: BP 122/62
[2019-01-14 05:32] LABS: BASO % 0 % (0-3); EOS % 0 % (0-3); HEMATOCRIT 41.9 % (36.0-47.0); HEMOGLOBIN 13.8 g/dL (12.0-15.5); LYMPH # 3.3 x10^3/uL (1.0-4.8); LYMPH % 30 % (24-48); MEAN CORPUSCULAR HEMOGLOBIN 27 pg (25-35); MEAN CORPUSCULAR HGB CONC 33 g/dL (31-37); MEAN CORPUSCULAR VOLUME 83 fL (79-100); MONO % 9 % (0-9); NEUT # 6.7 x10^3uL (1.8-7.7); NEUT % 60 % (31-73); PLATELET COUNT 257 x10^3/uL (140-400); RED BLOOD COUNT 5.07 x10^6/uL (3.50-5.40); RED CELL DISTRIBUTION WIDTH 15.8 % (11.5-14.5); WHITE BLOOD COUNT 11.1 x10^3/uL (4.0-11.0)
[2019-01-14 06:01] LABS: CALCIUM 8.5 mg/dL (8.5-10.1); CREATININE 0.8 mg/dL (0.6-1.0); GFR 73.4; POTASSIUM 3.6 mmol/L (3.5-5.1)
[2019-01-14 07:00] VITALS: BP 137/67
[2019-01-14] MEDS: predniSONE 10 MG TABLET PO SCH (08:32)
[2019-01-14] MEDS: GABAPENTIN 100 MG CAPSULE. PO SCH ×2 (08:32→13:03)
[2019-01-14] MEDS: SPIRONOLACTONE 25 MG TABLET PO SCH (08:32)
[2019-01-14] MEDS: NAPROXEN 250 MG TABLET PO SCH (08:33)
[2019-01-14] MEDS: ACYCLOVIR 200 MG CAPSULE. PO SCH ×2 (08:33→13:04)
[2019-01-14] MEDS: LOSARTAN POTASSIUM 50 MG TABLET. PO SCH (08:34)
[2019-01-14] MEDS: ASPIRIN ENTERIC COATED 325 MG TABLET.DR. PO SCH (08:37)
[2019-01-14] MEDS: PANTOPRAZOLE 40 MG TABLET.DR. PO SCH (08:38)
[2019-01-14] MEDS: THIAMINE 100 MG TABLET. PO SCH (08:39)
[2019-01-14] MEDS ORDERED: amLODIPine BESYLATE 10 MG TABLET PO SCH (09:00)
[2019-01-14] MEDS ORDERED: SPIRONOLACTONE 25 MG TABLET PO SCH (09:00)
[2019-01-14] MEDS: METOPROLOL SUCC 24HR ER 50 MG TAB.ER.24H. PO SCH (09:00)
[2019-01-14 11:00] VITALS: BP 126/70
--- NOTE | 2019-01-14 11:10 | PDOC ---
PROGRESS NOTES History of Present Illness History of Present Illness Assessment/Plan Assessment/Plan left facial tingling - sNIHSS 2 Chronic lacunar infarct within the left lino. LEft sided CP, MSK in nature HTN, poor control, now improved 01/14 will d/c metoprolol due to bradycardia and start coreg 3.125 mg po bid Obesity, EXTREME, MORBID PLAN: OBS MRI reviewed ASA 325 NEuro following CP cards consulted MEds adjusted ASA TELE inc norvasc to 10mg po daily NEUROCHECKS Q 4 HRS low na diet reviewed Vitals Vitals Vital Signs Date Time Temp Pulse Resp B/P (MAP) Pulse Ox O2 Delivery O2 Flow Rate FiO2 01/14/19 09:00 57 01/14/19 08:37 137/65 01/14/19 07:54 Room Air 01/14/19 07:00 97.9 16 95 97.9 Physical Exam General: Alert, Oriented X3, Cooperative, No acute distress Heart: Regular rate (SR), Normal S1, Normal S2, No murmurs Lungs: Clear Abdomen: Normal bowel sounds, Soft, No tenderness Extremities: No cyanosis, No edema Skin: No breakdown, No significant lesion Labs LABS Laboratory Tests Test 01/14/19 04:30 White Blood Count 11.1 x10^3/uL (4.0-11.0) Red Blood Count 5.07 x10^6/uL (3.50-5.40) Hemoglobin 13.8 g/dL (12.0-15.5) Hematocrit 41.9 % (36.0-47.0) Mean Corpuscular Volume 83 fL (79-100) Mean Corpuscular Hemoglobin 27 pg (25-35) Mean Corpuscular Hemoglobin Concent 33 g/dL (31-37) Red Cell Distribution Width 15.8 % (11.5-14.5) Platelet Count 257 x10^3/uL (140-400) Neutrophils (%) (Auto) 60 % (31-73) Lymphocytes (%) (Auto) 30 % (24-48) Monocytes (%) (Auto) 9 % (0-9) Eosinophils (%) (Auto) 0 % (0-3) Basophils (%) (Auto) 0 % (0-3) Neutrophils # (Auto) 6.7 x10^3uL (1.8-7.7) Lymphocytes # (Auto) 3.3 x10^3/uL (1.0-4.8) Monocytes # (Auto) 1.0 x10^3/uL (0.0-1.1) Eosinophils # (Auto) 0.0 x10^3/uL (0.0-0.7) Basophils # (Auto) 0.0 x10^3/uL (0.0-0.2) Sodium Level 142 mmol/L (136-145) Potassium Level 3.6 mmol/L (3.5-5.1) Chloride Level 105 mmol/L (98-107) Carbon Dioxide Level 28 mmol/L (21-32) Anion Gap 9 (6-14) Blood Urea Nitrogen 20 mg/dL (7-20) Creatinine 0.8 mg/dL (0.6-1.0) Estimated GFR (Cockcroft-Gault) 73.4 Glucose Level 101 mg/dL (70-99) Calcium Level 8.5 mg/dL (8.5-10.1) Assessment and Plan Assessmemt and Plan Problems Medical Problems: (1) Chest pain Status: Acute (2) Paresthesia Status: Acute Comment Review of Relevant I have reviewed the following items savannah (where applicable) has been applied. Labs Laboratory Tests Test 01/12/19 16:00 01/12/19 19:40 01/13/19 02:00 01/14/19 04:30 Troponin I Quantitative < 0.017 ng/mL (0.000-0.055) < 0.017 ng/mL (0.000-0.055) Urine Opiates Screen Neg (NEG) Urine Methadone Screen Neg (NEG) Urine Barbiturates Neg (NEG) Urine Phencyclidine Screen Neg (NEG) Urine Amphetamine/Methamphetamine Neg (NEG) Urine Benzodiazepines Screen Neg (NEG) Urine Cocaine Screen Neg (NEG) Urine Cannabinoids Screen Neg (NEG) Urine Ethyl Alcohol Neg (NEG) White Blood Count 11.1 x10^3/uL (4.0-11.0) Red Blood Count 5.07 x10^6/uL (3.50-5.40) Hemoglobin 13.8 g/dL (12.0-15.5) Hematocrit 41.9 % (36.0-47.0) Mean Corpuscular Volume 83 fL (79-100) Mean Corpuscular Hemoglobin 27 pg (25-35) Mean Corpuscular Hemoglobin Concent 33 g/dL (31-37) Red Cell Distribution Width 15.8 % (11.5-14.5) Platelet Count 257 x10^3/uL (140-400) Neutrophils (%) (Auto) 60 % (31-73) Lymphocytes (%) (Auto) 30 % (24-48) Monocytes (%) (Auto) 9 % (0-9) Eosinophils (%) (Auto) 0 % (0-3) Basophils (%) (Auto) 0 % (0-3) Neutrophils # (Auto) 6.7 x10^3uL (1.8-7.7) Lymphocytes # (Auto) 3.3 x10^3/uL (1.0-4.8) Monocytes # (Auto) 1.0 x10^3/uL (0.0-1.1) Eosinophils # (Auto) 0.0 x10^3/uL (0.0-0.7) Basophils # (Auto) 0.0 x10^3/uL (0.0-0.2) Sodium Level 142 mmol/L (136-145) Potassium Level 3.6 mmol/L (3.5-5.1) Chloride Level 105 mmol/L (98-107) Carbon Dioxide Level 28 mmol/L (21-32) Anion Gap 9 (6-14) Blood Urea Nitrogen 20 mg/dL (7-20) Creatinine 0.8 mg/dL (0.6-1.0) Estimated GFR (Cockcroft-Gault) 73.4 Glucose Level 101 mg/dL (70-99) Calcium Level 8.5 mg/dL (8.5-10.1) Laboratory Tests Test 01/14/19 04:30 White Blood Count 11.1 x10^3/uL (4.0-11.0) Red Blood Count 5.07 x10^6/uL (3.50-5.40) Hemoglobin 13.8 g/dL (12.0-15.5) Hematocrit 41.9 % (36.0-47.0) Mean Corpuscular Volume 83 fL (79-100) Mean Corpuscular Hemoglobin 27 pg (25-35) Mean Corpuscular Hemoglobin Concent 33 g/dL (31-37) Red Cell Distribution Width 15.8 % (11.5-14.5) Platelet Count 257 x10^3/uL (140-400) Neutrophils (%) (Auto) 60 % (31-73) Lymphocytes (%) (Auto) 30 % (24-48) Monocytes (%) (Auto) 9 % (0-9) Eosinophils (%) (Auto) 0 % (0-3) Basophils (%) (Auto) 0 % (0-3) Neutrophils # (Auto) 6.7 x10^3uL (1.8-7.7) Lymphocytes # (Auto) 3.3 x10^3/uL (1.0-4.8) Monocytes # (Auto) 1.0 x10^3/uL (0.0-1.1) Eosinophils # (Auto) 0.0 x10^3/uL (0.0-0.7) Basophils # (Auto) 0.0 x10^3/uL (0.0-0.2) Sodium Level 142 mmol/L (136-145) Potassium Level 3.6 mmol/L (3.5-5.1) Chloride Level 105 mmol/L (98-107) Carbon Dioxide Level 28 mmol/L (21-32) Anion Gap 9 (6-14) Blood Urea Nitrogen 20 mg/dL (7-20) Creatinine 0.8 mg/dL (0.6-1.0) Estimated GFR (Cockcroft-Gault) 73.4 Glucose Level 101 mg/dL (70-99) Calcium Level 8.5 mg/dL (8.5-10.1) Medications Current Medications Aspirin (Children'S Aspirin) 324 mg 1X ONCE PO Last administered on 01/12/19at 11:59; Start 01/12/19 at 11:30; Stop 01/12/19 at 11:31; Status DC Iohexol (Omnipaque 300 Mg/ml) 75 ml 1X ONCE IV ; Start 01/12/19 at 11:45; Stop 01/12/19 at 11:46; Status DC Iohexol (Omnipaque 350 Mg/ml) 75 ml 1X ONCE IV Last administered on 01/12/19at 11:51; Start 01/12/19 at 11:45; Stop 01/12/19 at 11:49; Status DC Info (CONTRAST GIVEN -- Rx MONITORING) 1 each PRN DAILY PRN MC SEE COMMENTS; Start 01/12/19 at 12:00; Stop 01/14/19 at 11:59 Aspirin (Ecotrin) 325 mg DAILYWBKFT PO Last administered on 01/14/19at 08:37; Start 01/13/19 at 08:00 Amlodipine Besylate (Norvasc) 5 mg DAILY PO Last administered on 01/13/19at 10: 37; Start 01/13/19 at 09:00; Stop 01/13/19 at 12:59; Status DC Non-Formulary Medication (Mesalamine (Lialda)) 1.2 gm QID PO ; Start 01/12/19 at 13:00; Status UNV Naproxen (Naprosyn) 250 mg BIDWMEALS PO Last administered on 01/14/19at 08:33; Start 01/12/19 at 17:00 Losartan Potassium (Cozaar) 100 mg DAILY PO Last administered on 01/14/19at 08: 34; Start 01/13/19 at 09:00 Acetaminophen (Tylenol) 500 mg PRN Q6HRS PRN PO MILD PAIN / TEMP; Start at 13:30 Acetaminophen/ Codeine Phosphate (Tylenol #3) 1 tab PRN Q6HRS PRN PO PAIN; Start 01/12/19 at 13:30 Ondansetron HCl (Zofran) 4 mg PRN Q6HRS PRN IV NAUSEA/VOMITING; Start 01/12/19 at 13:30 Ondansetron HCl (Zofran Odt) 4 mg PRN Q6HRS PRN PO NAUSEA/VOMITING; Start 01/12 at 13:30 Pantoprazole Sodium (Protonix) 40 mg DAILYAC PO Last administered on 01/14/19at 08:38; Start 01/12/19 at 16:30 Losartan Potassium (Cozaar) 100 mg DAILY PO ; Start 01/12/19 at 16:00; Status Cancel Hydralazine HCl (Apresoline Inj) 10 mg PRN Q6HRS PRN IVP ELEVATED BP, SEE COMMENTS Last administered on 01/12/19at 18:17; Start 01/12/19 at 18:15; Stop at 18:23; Status DC Acyclovir (Zovirax) 400 mg [id number] PO Last administered on 01/13/19 13:55; Start 01/12/19 at 21:00; Stop 01/13/19 at 14:55; Status DC Prednisone (Prednisone) 30 mg DAILY PO Last administered on 01/14/19 08:32; Start 01/12/19 at 19:00 Thiamine Mononitrate (Vitamin B-1) 100 mg DAILY PO Last administered on 08:39; Start 01/13/19 at 09:00 Losartan Potassium (Cozaar) 50 mg 1X ONCE PO Last administered on 01/12/19at 19 :35; Start 01/12/19 at 19:30; Stop 01/12/19 at 19:31; Status DC Gadobutrol (Gadavist) 10 mmol 1X ONCE IV Last administered on 01/13/19 09:27 ; Start 01/13/19 at 09:15; Stop 01/13/19 at 09:16; Status DC Amlodipine Besylate (Norvasc) 10 mg DAILY PO Last administered on 01/14/19at 08: 37; Start 01/14/19 at 09:00 Acyclovir (Zovirax) 400 mg QID PO Last administered on 01/14/19 08:33; Start 01/13/19 at 17:00 Gabapentin (Neurontin) 200 mg TID PO Last administered on 01/14/19 08:32; Start 01/13/19 at 15:00 Spironolactone (Aldactone) 25 mg DAILY PO ; Start 01/14/19 at 09:00; Stop at 09:00; Status DC Spironolactone (Aldactone) 25 mg DAILY PO Last administered on 01/14/19at 08:32 ; Start 01/13/19 at 16:30 Metoprolol Succinate (Toprol Xl) 50 mg DAILY PO ; Start 01/13/19 at 18:30; Status UNV Metoprolol Succinate (Toprol Xl) 50 mg DAILY PO Last administered on 01/13/19at 18:29; Start 01/13/19 at 19:00; Stop 01/14/19 at 10:00; Status DC Carvedilol (Coreg) 3.125 mg BIDWMEALS PO ; Start 01/14/19 at 17:00 Active Scripts Active Reported Aleve (Naproxen Sodium) 220 Mg Capsule 220 Mg PO BID Benicar (Olmesartan Medoxomil) 40 Mg Tablet 40 Mg PO DAILY Amlodipine Besylate 5 Mg Tablet 5 Mg PO DAILY Vitals/I & O Vital Sign - Last 24 Hours 01/13/19 01/13/19 01/13/19 01/13/19 13:11 15:00 18:00 18:29 Temp 98.0 98.0 Pulse 73 75 88 88 Resp 16 B/P (MAP) 154/92 (112) 155/76 (102) 174/81 (112) 174/81 Pulse Ox 97 O2 Delivery Room Air 01/13/19 01/13/19 01/13/19 01/14/19 19:37 20:30 22:14 03:59 Temp 97.9 97.8 97.6 97.9 97.8 97.6 Pulse 71 58 53 Resp 18 19 B/P (MAP) 151/72 (98) 154/70 (98) 122/62 (82) Pulse Ox 95 95 95 O2 Delivery Room Air Room Air Room Air Room Air 01/14/19 01/14/19 01/14/19 01/14/19 07:00 07:54 08:34 08:37 Temp 97.9 97.9 Pulse 57 59 59 Resp 16 B/P (MAP) 137/67 (90) 137/65 137/65 Pulse Ox 95 O2 Delivery Room Air Room Air 01/14/19 09:00 Pulse 57 Intake and Output 01/13/19 01/13/19 01/14/19 15:00 23:00 07:00 Intake Total 240 ml 1020 ml Balance 240 ml 1020 ml RADHA JENKINS MD Jan 14, 2019 11:10
--- NOTE | 2019-01-14 12:20 | PDOC3 ---
Discharge Summary Date of Admission: Jan 12, 2019 Date of Discharge: Jan 14, 2019 Follow-Up: 3-5 days Admitting Diagnosis comment: discharge dx LEO'S palsy left facial tingling - Chronic lacunar infarct within the left lino. LEft sided CP, MSK in nature HTN, poor control, now improved 01/14 will d/c metoprolol due to bradycardia and start coreg 3.125 mg po bid Obesity, EXTREME, MORBID PLAN: OBS MRI reviewed ASA 325 NEuro following CP cards consulted MEds adjusted ASA TELE cont norvasc to 10mg po daily Antiviral treatment, Acyclovir 400 mg qid x 7-10 days. Steroid 1 course, Prednisone 30 mg daily, decreased 10 mg q 2 days then 5 mg daily for 2 days then stop. Neurontin 200 mg tid with titration up. BP control. low na diet reviewed Vitals Vitals Vital Signs Date Time Temp Pulse Resp B/P (MAP) Pulse Ox O2 Delivery O2 Flow Rate FiO2 01/14/19 09:00 57 01/14/19 08:37 137/65 01/14/19 07:54 Room Air 01/14/19 07:00 97.9 16 95 97.9 Physical Exam General: Alert, Oriented X3, Cooperative, No acute distress Heart: Regular rate (SR), Normal S1, Normal S2, No murmurs Lungs: Clear Abdomen: Normal bowel sounds, Soft, No tenderness Extremities: No cyanosis, No edema Skin: No breakdown, No significant lesion FINAL DIAGNOSIS Problems Medical Problems: (1) Chest pain Status: Acute (2) Paresthesia Status: Acute Brief Hospital Course Ms. James is a 58 old [sex] who presented with [facial weakness, tingling ] CONDITION AT DISCHARGE: Improved Discharge Medications Current Medications Aspirin (Children'S Aspirin) 324 mg 1X ONCE PO Last administered on 01/12/19at 11:59; Start 01/12/19 at 11:30; Stop 01/12/19 at 11:31; Status DC Iohexol (Omnipaque 300 Mg/ml) 75 ml 1X ONCE IV ; Start 01/12/19 at 11:45; Stop 01/12/19 at 11:46; Status DC Iohexol (Omnipaque 350 Mg/ml) 75 ml 1X ONCE IV Last administered on 01/12/19at 11:51; Start 01/12/19 at 11:45; Stop 01/12/19 at 11:49; Status DC Info (CONTRAST GIVEN -- Rx MONITORING) 1 each PRN DAILY PRN MC SEE COMMENTS; Start 01/12/19 at 12:00; Stop 01/14/19 at 11:59; Status DC Aspirin (Ecotrin) 325 mg DAILYWBKFT PO Last administered on 01/14/19at 08:37; Start 01/13/19 at 08:00 Amlodipine Besylate (Norvasc) 5 mg DAILY PO Last administered on 01/13/19at 10: 37; Start 01/13/19 at 09:00; Stop 01/13/19 at 12:59; Status DC Non-Formulary Medication (Mesalamine (Lialda)) 1.2 gm QID PO ; Start 01/12/19 at 13:00; Status UNV Naproxen (Naprosyn) 250 mg BIDWMEALS PO Last administered on 01/14/19at 08:33; Start 01/12/19 at 17:00 Losartan Potassium (Cozaar) 100 mg DAILY PO Last administered on 01/14/19at 08: 34; Start 01/13/19 at 09:00 Acetaminophen (Tylenol) 500 mg PRN Q6HRS PRN PO MILD PAIN / TEMP; Start at 13:30 Acetaminophen/ Codeine Phosphate (Tylenol #3) 1 tab PRN Q6HRS PRN PO PAIN; Start 01/12/19 at 13:30 Ondansetron HCl (Zofran) 4 mg PRN Q6HRS PRN IV NAUSEA/VOMITING; Start 01/12/19 at 13:30 Ondansetron HCl (Zofran Odt) 4 mg PRN Q6HRS PRN PO NAUSEA/VOMITING; Start 01/12 at 13:30 Pantoprazole Sodium (Protonix) 40 mg DAILYAC PO Last administered on 01/14/19at 08:38; Start 01/12/19 at 16:30 Losartan Potassium (Cozaar) 100 mg DAILY PO ; Start 01/12/19 at 16:00; Status Cancel Hydralazine HCl (Apresoline Inj) 10 mg PRN Q6HRS PRN IVP ELEVATED BP, SEE COMMENTS Last administered on 01/12/19at 18:17; Start 01/12/19 at 18:15; Stop at 18:23; Status DC Acyclovir (Zovirax) 400 mg [id number] PO Last administered on 01/13/19at 13:55; Start 01/12/19 at 21:00; Stop 01/13/19 at 14:55; Status DC Prednisone (Prednisone) 30 mg DAILY PO Last administered on 01/14/19at 08:32; Start 01/12/19 at 19:00 Thiamine Mononitrate (Vitamin B-1) 100 mg DAILY PO Last administered on at 08:39; Start 01/13/19 at 09:00 Losartan Potassium (Cozaar) 50 mg 1X ONCE PO Last administered on 01/12/19at 19 :35; Start 01/12/19 at 19:30; Stop 01/12/19 at 19:31; Status DC Gadobutrol (Gadavist) 10 mmol 1X ONCE IV Last administered on 01/13/19at 09:27 ; Start 01/13/19 at 09:15; Stop 01/13/19 at 09:16; Status DC Amlodipine Besylate (Norvasc) 10 mg DAILY PO Last administered on 01/14/19at 08: 37; Start 01/14/19 at 09:00 Acyclovir (Zovirax) 400 mg QID PO Last administered on 01/14/19at 08:33; Start 01/13/19 at 17:00 Gabapentin (Neurontin) 200 mg TID PO Last administered on 01/14/19at 08:32; Start 01/13/19 at 15:00 Spironolactone (Aldactone) 25 mg DAILY PO ; Start 01/14/19 at 09:00; Stop at 09:00; Status DC Spironolactone (Aldactone) 25 mg DAILY PO Last administered on 01/14/19at 08:32 ; Start 01/13/19 at 16:30 Metoprolol Succinate (Toprol Xl) 50 mg DAILY PO ; Start 01/13/19 at 18:30; Status UNV Metoprolol Succinate (Toprol Xl) 50 mg DAILY PO Last administered on 01/13/19at 18:29; Start 01/13/19 at 19:00; Stop 01/14/19 at 10:00; Status DC Carvedilol (Coreg) 3.125 mg BIDWMEALS PO ; Start 01/14/19 at 17:00 Active Scripts Active Reported Aleve (Naproxen Sodium) 220 Mg Capsule 220 Mg PO BID Benicar (Olmesartan Medoxomil) 40 Mg Tablet 40 Mg PO DAILY Amlodipine Besylate 5 Mg Tablet 5 Mg PO DAILY Vital Signs Vital Signs Date Time Temp Pulse Resp B/P (MAP) Pulse Ox O2 Delivery O2 Flow Rate FiO2 01/14/19 11:00 97.7 61 16 126/70 (88) 93 Room Air 97.7 Labs Laboratory Tests Test 01/12/19 16:00 01/12/19 19:40 01/13/19 02:00 01/14/19 04:30 Troponin I Quantitative < 0.017 ng/mL (0.000-0.055) < 0.017 ng/mL (0.000-0.055) Urine Opiates Screen Neg (NEG) Urine Methadone Screen Neg (NEG) Urine Barbiturates Neg (NEG) Urine Phencyclidine Screen Neg (NEG) Urine Amphetamine/Methamphetamine Neg (NEG) Urine Benzodiazepines Screen Neg (NEG) Urine Cocaine Screen Neg (NEG) Urine Cannabinoids Screen Neg (NEG) Urine Ethyl Alcohol Neg (NEG) White Blood Count 11.1 x10^3/uL (4.0-11.0) Red Blood Count 5.07 x10^6/uL (3.50-5.40) Hemoglobin 13.8 g/dL (12.0-15.5) Hematocrit 41.9 % (36.0-47.0) Mean Corpuscular Volume 83 fL (79-100) Mean Corpuscular Hemoglobin 27 pg (25-35) Mean Corpuscular Hemoglobin Concent 33 g/dL (31-37) Red Cell Distribution Width 15.8 % (11.5-14.5) Platelet Count 257 x10^3/uL (140-400) Neutrophils (%) (Auto) 60 % (31-73) Lymphocytes (%) (Auto) 30 % (24-48) Monocytes (%) (Auto) 9 % (0-9) Eosinophils (%) (Auto) 0 % (0-3) Basophils (%) (Auto) 0 % (0-3) Neutrophils # (Auto) 6.7 x10^3uL (1.8-7.7) Lymphocytes # (Auto) 3.3 x10^3/uL (1.0-4.8) Monocytes # (Auto) 1.0 x10^3/uL (0.0-1.1) Eosinophils # (Auto) 0.0 x10^3/uL (0.0-0.7) Basophils # (Auto) 0.0 x10^3/uL (0.0-0.2) Sodium Level 142 mmol/L (136-145) Potassium Level 3.6 mmol/L (3.5-5.1) Chloride Level 105 mmol/L (98-107) Carbon Dioxide Level 28 mmol/L (21-32) Anion Gap 9 (6-14) Blood Urea Nitrogen 20 mg/dL (7-20) Creatinine 0.8 mg/dL (0.6-1.0) Estimated GFR (Cockcroft-Gault) 73.4 Glucose Level 101 mg/dL (70-99) Calcium Level 8.5 mg/dL (8.5-10.1) Laboratory Tests Test 01/14/19 04:30 White Blood Count 11.1 x10^3/uL (4.0-11.0) Red Blood Count 5.07 x10^6/uL (3.50-5.40) Hemoglobin 13.8 g/dL (12.0-15.5) Hematocrit 41.9 % (36.0-47.0) Mean Corpuscular Volume 83 fL (79-100) Mean Corpuscular Hemoglobin 27 pg (25-35) Mean Corpuscular Hemoglobin Concent 33 g/dL (31-37) Red Cell Distribution Width 15.8 % (11.5-14.5) Platelet Count 257 x10^3/uL (140-400) Neutrophils (%) (Auto) 60 % (31-73) Lymphocytes (%) (Auto) 30 % (24-48) Monocytes (%) (Auto) 9 % (0-9) Eosinophils (%) (Auto) 0 % (0-3) Basophils (%) (Auto) 0 % (0-3) Neutrophils # (Auto) 6.7 x10^3uL (1.8-7.7) Lymphocytes # (Auto) 3.3 x10^3/uL (1.0-4.8) Monocytes # (Auto) 1.0 x10^3/uL (0.0-1.1) Eosinophils # (Auto) 0.0 x10^3/uL (0.0-0.7) Basophils # (Auto) 0.0 x10^3/uL (0.0-0.2) Sodium Level 142 mmol/L (136-145) Potassium Level 3.6 mmol/L (3.5-5.1) Chloride Level 105 mmol/L (98-107) Carbon Dioxide Level 28 mmol/L (21-32) Anion Gap 9 (6-14) Blood Urea Nitrogen 20 mg/dL (7-20) Creatinine 0.8 mg/dL (0.6-1.0) Estimated GFR (Cockcroft-Gault) 73.4 Glucose Level 101 mg/dL (70-99) Calcium Level 8.5 mg/dL (8.5-10.1) Allergies Allergies Coded Allergies Type Severity Reaction Last Updated Verified hydralazine Allergy Intermediate Rash 01/13/19 Yes Disposition/Orders: D/C to Home Patient Instructions d/c planning 38 min RADHA JENKINS MD Jan 14, 2019 12:20
[2019-01-14] MEDS ORDERED: CARVEDILOL 3.125 MG TABLET. PO SCH ×2 (12:30→17:00)
[2019-01-14] MEDS ORDERED: SPIR25TA PO (12:34)
[2019-01-14] MEDS ORDERED: ASPI325T11 PO (12:34)
[2019-01-14] MEDS ORDERED: ACYC200C PO (12:34)
[2019-01-14] MEDS ORDERED: THIA100T22 PO (12:34)
[2019-01-14] MEDS ORDERED: GABA-585 PO (12:34)
[2019-01-14] MEDS ORDERED: AMLO10TA8 PO (12:34)
[2019-01-14] MEDS ORDERED: PRED-220 PO (12:34)
[2019-01-14] MEDS ORDERED: ACET1TAB33 PO (12:34)
[2019-01-14] MEDS ORDERED: CARV3.1210 PO (12:34)
--- NOTE | 2019-01-14 12:35 | DISCH ---
DISCHARGE INSTRUCTIONS Condition on Discharge Condition on Discharge: Stable Activity After Discharge Activity Instructions for Disc: Activity as tolerated Lifting Instructions after Dis: No heavy lifting, No pulling or pushing Driving Instructions after Dis: Do not drive today Diet after Discharge Diet after Discharge: Cardiac, Low Sodium 2 gm Liquid Texture: Thin Liquid Checks after Discharge Checks after discharge: Check blood press - daily Contacting the DRElisa after DC Call your doctor for: If your condition worsens Follow-Up Follow up with: Dr. Muhammad neurology in 1-2 weeks [phone] Follow Up With: Primary care doctor in one week Treatment/Equipment after DC Adaptive Equipment Issued: None RADHA JENKINS MD Jan 14, 2019 12:35
[2019-01-14 15:00] VITALS: BP 126/63
--- NOTE | 2019-01-14 16:45 | NUR ---
Pt discharged to home. Pt with HR in the 60s SR, BP 126/63 after taking dose of Coreg 3/125, walked and felt no s/s of bradycardia. All discharge orders, scripts, education, follow-ups reviewed. Pt denies further needs. Pt iv d/c'd without complications.
== END 2019-01-14 16:50 | disposition home or self-care (01) | DRG 74 ==
LOC: ER 10:37 → 2 SOUTH 13:00
PROVIDERS: ADMIT Internal Medicine; ATTEND Internal Medicine
DX: G51.0 Bell's palsy (principal); Z68.42 Body mass index [BMI] 45.0-49.9, adult; R07.89 Other chest pain; E66.01 Morbid (severe) obesity due to excess calories; E78.5 Hyperlipidemia, unspecified; H93.19 Tinnitus, unspecified ear; I10 Essential (primary) hypertension; R29.702 NIHSS score 2; Z79.899 Other long term (current) drug therapy; Z82.49 Family history of ischemic heart disease and other diseases of the circulatory system; Z86.19 Personal history of other infectious and parasitic diseases; Z90.710 Acquired absence of both cervix and uterus; Z90.49 Acquired absence of other specified parts of digestive tract; Z88.8 Allergy status to other drugs, medicaments and biological substances
CPT/HCPCS: 36415; 70450; 70496; 70498; 70551; 70552; 71045; 80048; 80053; 80061; 80307; 82553; 82607; 83735; 83880; 84443; 84484; 85025; 85610; 93005; 93306; A9585; J0360; J7512; Q9967

== ENCOUNTER → 2019-02-15 | Outpatient (CLI) | payer OTHER ==
[~2019-02-15] MED LIST changes: +ACET1TAB33 PO; +ACYC200C PO; +AMLO10TA8 PO; +ASPI325T11 PO; +CARV3.1210 PO; +GABA-585 PO; +PRED-220 PO; +RABE20TA18 PO; +SPIR25TA PO; +THIA100T22 PO
--- NOTE | 2019-02-20 12:32 | EEG ---
DATE OF SERVICE: ____ 136. OBJECTIVE: This is a 58-year-old female patient with history of abnormal facial twitching movements. EEG was requested to help rule out seizure. METHODS: Twenty electrodes were applied according to the international 10-20 electrode placement system. EKG monitoring, hyperventilation, intermittent photic stimulation, monopolar and bipolar montages are routinely utilized. The record was obtained on a digital system with video monitoring. FINDINGS: 1. Background: The patient was recorded in the awake, drowsy, and sleep states. The overall background amplitude is 5-15 microvolts. A posterior dominant rhythm of 8-9 is observed. 2. Abnormalities: No specific epileptiform discharge or electrographic seizure is seen. No focal or diffuse slowing. 3. Activation: Hyperventilation was performed with good efforts and normal response. Intermittent photic stimulation was performed with photic driving. Photoparoxysmal response noted. IMPRESSION: This EEG is a borderline study for the awake, drowsy and sleep states. Photoparoxysmal response noted.. No focal, lateralizing, specific epileptiform discharge or electrographic seizure is seen. DERECK HOPE MD DR: ROSA MARIA/marcia JOB#: [id number] / [id number]
== END | disposition home or self-care (01) ==
LOC: RT 07:40
PROVIDERS: ATTEND Psychiatry & Neurology Neurology
DX: R25.3 Fasciculation (principal)
CPT/HCPCS: 95816